=== PATIENT | female | born 2000 | race Caucasian/White ===

== ENCOUNTER → 2019-12-02 08:40 | Outpatient (BNVA) | payer BC, MEDICAID, SELFPAY | PROVIDERS: Family Provider Nurse Practitioner Family; Visit Provider Nurse Practitioner | DX: R82.998 Other abnormal findings in urine (principal); R39.9 Unspecified symptoms and signs involving the genitourinary system; N39.0 Urinary tract infection, site not specified | CPT/HCPCS: 80053; 81003; 87077; 87086; 87186 ==

== ENCOUNTER → 2022-02-06 15:09 | Outpatient (BNVA) | payer BC, MEDICAID, SELFPAY | PROVIDERS: Visit Provider Family Medicine | DX: Z34.00 Encounter for supervision of normal first pregnancy, unspecified trimester (principal) | CPT/HCPCS: 82950 ==

== ENCOUNTER → 2022-04-03 09:35 | Outpatient (BNVA) | payer BC, MEDICAID, SELFPAY | PROVIDERS: PCP Family Medicine; Visit Provider Family Medicine | DX: Z34.00 Encounter for supervision of normal first pregnancy, unspecified trimester (principal) | CPT/HCPCS: 85025 ==

== ENCOUNTER 2022-05-01 10:36 | Outpatient (CLI) | payer BC, MEDICAID, SELFPAY ==
[2022-05-01 10:50] VITALS: TEMP 35.9
[2022-05-01 10:51] VITALS: BP 124/63; PULSE 72
[2022-05-01 11:11] VITALS: RESP 16
--- NOTE | 2022-05-01 11:11 | US_ITS ---
WS: [id number] LIMITED OBSTETRICAL ULTRASOUND HISTORY: measuring small COMPARISON: 01/04/2022 and 10/10/2021 Presentation: Vertex. Cervix: Closed. Placenta: Anterior, no previa or abruption. Grade: 1 HEART: FHR of 150 BPM. measurements: BPD = 9.0 cm = 36w3d; 59th percentile HC = 32.2 cm = 36w3d; 21st percentile AC = 29.4 cm = 33w3d; 2nd percentile FL = 7.1 cm = 36w3d; 47th percentile AZALIA: 10.0 cm; largest vertical pocket 2.8 cm. EFW: 2533 g; 32 %. AGA by ultrasound: 35w5d ZOË by ultrasound: 05/31/2022 Appropriate growth of the fetus since the first trimester ultrasound. There is also circumference US/US OB limited [id number] IMPRESSION: 1. Single intrauterine gestation of 35 weeks 5 days with EDC of 05/31/2022. 2. Abdominal circumference is measuring at the 2nd percentile and measuring ap proximately 3 weeks smaller than expected. Suspect intrauterine growth retardat ion. 3. Estimated weight at the 32nd percentile for age. 4. Normal amniotic fluid index.
[2022-05-01 11:14] VITALS: BMI 28.3
[2022-05-01 11:27] LABS: Actim Prom Negative
== END 2022-05-01 12:25 | disposition home or self-care (01) ==
LOC: OPOB 10:40 → OBGYN 10:41
PROVIDERS: PCP Family Medicine; Visit Provider Family Medicine
DX: O41.93X1 Disorder of amniotic fluid and membranes, unspecified, third trimester, fetus 1 (principal); Z3A.36 36 weeks gestation of pregnancy
CPT/HCPCS: 59025; 76815; 84112; 87081; 99211

== ENCOUNTER → 2022-05-09 13:47 | Outpatient (BNVA) | payer BC, MEDICAID, SELFPAY | PROVIDERS: PCP Family Medicine; Visit Provider Family Medicine | DX: O36.5930 Maternal care for other known or suspected poor fetal growth, third trimester, not applicable or unspecified (principal); Z3A.36 36 weeks gestation of pregnancy | CPT/HCPCS: 76815; 76819; 76820 ==

== ENCOUNTER 2022-05-10 17:01 | Outpatient (CLI) | payer BC, MEDICAID, SELFPAY ==
[2022-05-10 17:16] VITALS: BP 125/75; PULSE 88
[2022-05-10 17:21] VITALS: RESP 18
[2022-05-10 17:22] VITALS: BMI 28.3
[2022-05-10 17:27] VITALS: BP 129/80; PULSE 82
[2022-05-10 17:37] VITALS: BP 121/67; PULSE 78
[2022-05-10 17:46] VITALS: BP 131/66; PULSE 86
== END 2022-05-10 17:50 | disposition home or self-care (01) ==
LOC: OPOB 17:02 → OBGYN 17:02
PROVIDERS: PCP Family Medicine; Visit Provider Family Medicine
DX: O26.899 Other specified pregnancy related conditions, unspecified trimester (principal); Z3A.00 Weeks of gestation of pregnancy not specified
CPT/HCPCS: 59025

== ENCOUNTER 2022-05-12 16:54 | Outpatient (CLI) | payer BC, MEDICAID, SELFPAY ==
[2022-05-12 17:25] VITALS: BP 131/83; PULSE 69
[2022-05-12 17:35] VITALS: BP 119/73; PULSE 73
[2022-05-12 17:51] VITALS: BMI 28.3
== END 2022-05-12 17:58 | disposition home or self-care (01) ==
LOC: OPOB 16:54 → OBGYN 16:55
PROVIDERS: PCP Family Medicine; Visit Provider Family Medicine
DX: O41.00X0 Oligohydramnios, unspecified trimester, not applicable or unspecified (principal); Z3A.00 Weeks of gestation of pregnancy not specified
CPT/HCPCS: 59025; 99211

== ENCOUNTER 2022-05-16 17:14 | Outpatient (CLI) | payer BC, MEDICAID, SELFPAY ==
[2022-05-16 17:15] VITALS: BMI 28.8
[2022-05-16 17:21] VITALS: BP 129/78; PULSE 71
[2022-05-16 17:36] VITALS: BP 120/69; PULSE 80
[2022-05-16 17:52] VITALS: BP 125/69; PULSE 73
[2022-05-16 17:56] VITALS: RESP 16; TEMP 36.7
--- NOTE | 2022-05-16 17:56 | USR_ITS ---
PROCEDURE INFORMATION: Exam: US Biophysical Profile Without Non-Stress Test Exam date and time: 05/16/2022 6:16 PM Age: 21 years old Clinical indication: status abnormalities: ; growth - poor; Single gestation; Third trimester (=28 weeks 0 days); ; Patient HX: History of sga, asymmetric iugr done elsewhere, also HX low azalia done elsewhere. ; Additional info: Repeat azalia as well. Sga, low azalia TECHNIQUE: Imaging protocol: US biophysical profile without non-stress testing. COMPARISON: US OB >= 14 weeks fetus [id number] 01/04/2022 4:31 PM FINDINGS: heart rate: 133 bpm presentation: Cephalic Placenta: Anterior placenta without previa. Amniotic fluid: Amniotic fluid volume is normal. Amniotic fluid index: AZALIA is 17.1 cm. BIOPHYSICAL PROFILE: breathing movement (BPP): 2/2 body movement (BPP): 2/2 tone (BPP): 2/2 Amniotic fluid (BPP): 2/2 Biophysical profile score (BPP): 8/8 MATERNAL ANATOMY: Cervix: Cervical length measures 6.7 cm. Measurement is transabdominal. US/US OB BPP wo NST [id number] IMPRESSION: 1. Single live cephalic vein taken intrauterine gestation. 2. Biophysical profile score 8/8. 3. Unremarkable amniotic fluid index.
[2022-05-16 18:41] VITALS: BP 125/69; PULSE 67
[2022-05-16 18:45] VITALS: BP 125/69; PULSE 67
== END 2022-05-16 18:45 | disposition home or self-care (01) ==
LOC: OPOB 17:16 → OBGYN 17:17
PROVIDERS: PCP Family Medicine; Visit Provider Family Medicine
DX: O26.899 Other specified pregnancy related conditions, unspecified trimester (principal); Z3A.00 Weeks of gestation of pregnancy not specified
CPT/HCPCS: 76819

== ENCOUNTER 2022-05-19 10:58 | Outpatient (CLI) | payer BC, MEDICAID, SELFPAY ==
[2022-05-19 10:58] VITALS: BMI 28.7
[2022-05-19 11:09] VITALS: BP 117/58; PULSE 69; TEMP 36.3
[2022-05-19 11:23] VITALS: RESP 16
[2022-05-19 11:30] VITALS: BP 108/68; PULSE 76
== END 2022-05-19 11:45 | disposition home or self-care (01) ==
LOC: OPOB 11:05 → OBGYN 11:06
PROVIDERS: PCP Family Medicine; Visit Provider Family Medicine
DX: O41.00X0 Oligohydramnios, unspecified trimester, not applicable or unspecified (principal); Z3A.00 Weeks of gestation of pregnancy not specified
CPT/HCPCS: 59025

== ENCOUNTER 2022-05-22 07:00 | Inpatient (IN) | payer BC, MEDICAID, SELFPAY ==
[2022-05-21] VITALS (15 sets, daily range): BP systolic 90–128; BP diastolic 50–71; PULSE 52–96; RESP 16; TEMP 36.4; O2SAT 99; BMI 28.7
[2022-05-21] MEDS: ampicillin 2,000 MG in sodium chloride 0.9% (plus) 50 ML 100 MG IV (22:12)
[2022-05-21 22:27] LABS: Basophils % 0.2 %; Eosinophils % 0.4 %; Hematocrit 39.8 % (37.0-47.0); Hemoglobin 13.5 g/dL (11.5-15.3); Lymphocytes # 2.1 10^3/uL (0.8-4.8); Lymphocytes % 21.6 %; Mean Corpuscular HGB Conc 33.9 g/dL (30.0-36.0); Mean Corpuscular Hemoglobin 30.5 pg (28.0-34.0); Mean Corpuscular Volume 89.8 fl (81-99); Mean Platelet Volume 10.3 fL (7.4-10.4); Monocytes # 0.6 10^3/uL (0.2-0.9); Monocytes % 6.3 %; Neutrophils # 6.72 10^3/uL (1.8-7.7); Nucleated Red Blood Cells % 0 %; Platelet Count 208 10^3/cmm (130-400); Red Blood Count 4.43 10^6/uL (4.1-5.3); Red Cell Distribution Width 13.2 % (12.1-15.1); White Blood Count 9.5 10^3/uL (4.0-10.0)
[2022-05-21] MEDS: miSOPROStol 100 mcg tablet 25 MCG VAGINAL (22:30)
[2022-05-22] VITALS (113 sets, daily range): BP systolic 90–129; BP diastolic 40–83; PULSE 49–144; RESP 15–18; TEMP 35.8–36.9; O2SAT 80–100
[2022-05-22] MEDS: dextrose 5%-lactated ringers 1,000 ML 125 ML IV ×2 (00:23→10:27)
[2022-05-22] MEDS: ampicillin 1,000 MG in sodium chloride 0.9% (plus) 50 ML 100 MG IV ×2 (02:15→06:23)
[2022-05-22] MEDS: oxytocin 30 UNIT/500 ML BAG IV (02:42)
[2022-05-22] MEDS: lactated ringers 1,000 ML 999 ML IV ×3 (03:36→06:44)
[2022-05-22] MEDS: butorphanol 2 mg/mL SDV 1 mL 1 MG IVP (04:02)
--- NOTE | 2022-05-22 04:33 | P.ANESASSM_ITS ---
Documented by User: Navid Weiss, ELISSA 05/22/22 04:40 Pre-Anesthetic Assessment Height/Weight: Height 1.6 m Weight 73.482 kg Temp Pulse Resp BP Pulse Ox O2 Del Method 97.6 F 58 L 16 100/56 81 L 05/21/22 20:39 05/22/22 04:16 05/21/22 20:39 05/22/22 04:16 05/22/22 03:58 05/21/22 21:21 Preop Diagnosis: Planning of labor analgesia Familial anesthetic complications: None Was Beta Ferdinand taken within 24 hours: N/A Was Clonidine taken within 24 hours: N/A Social No alcohol and No tobacco (Previously) Exam alert, oriented x 3, clear to auscultation bilaterally and regular rate & rhythm Airway Submandibular: within normal limits Cervical ROM: within normal limits Mallampati: Class II Dentition: full History/ROS No significant history except as noted and No significant complaints Pulmonary None reported CV/HEM None reported Urinary Tract Infection Hepatic None reported GI None reported Metabolic None reported Musc/skel None reported Neuropsych None reported Anesthetic Plan ASA status: 2 Anesthesia: Anesthesia Evaluation and Regional (specify below) (Epidural) Risk of > 500 ml blood loss (7ml/kg in children): No Medications/Allergies Home Medications Medication Instructions Recorded Confirmed Last Taken Type prenat.vits,omar,ede-fzue-uqolm 1 tab PO DAILY 05/01/22 05/21/22 04/30/22 10:00 History Electric Breast Pump #1 ea 05/18/22 05/21/22 Unknown Rx Allergies Allergy/AdvReac Type Severity Reaction Status Date / Time doxycycline Allergy Mild rash Verified 05/21/22 21:39 ciprofloxacin [From Cipro] Allergy Unknown Rash, Verified 05/21/22 21:39 Itching trimethoprim [From Bactrim] Allergy Unknown Unknown Verified 05/21/22 21:39 sulfamethoxazole AdvReac Unknown rash and Verified 05/21/22 21:39 [From Bactrim] stomach pain Current Medications Generic Name Dose Route Start Last Admin Trade Name Freq PRN Reason Stop Dose Admin Butorphanol Tartrate 1 mg 05/21/22 20:39 05/22/22 04:02 Butorphanol 2 Mg/Ml Sdv 1 Ml IVP 1 mg Q2H PRN Administration SEVERE PAIN Ampicillin Sodium 1,000 mg/ 50 mls @ 100 mls/hr 05/22/22 00:30 05/22/22 02:15 Sodium Chloride IV 100 mls/hr Q4H HEBER Administration Protocol Dextrose/Lactated Ringer's 1,000 mls @ 125 mls/hr 05/21/22 20:39 05/22/22 00:23 Dextrose 5%-Lactated Ringers IV 125 mls/hr .Q8H PRN Administration per label comments Oxytocin 30 unit in 500 mls @ 1 mls/hr 05/22/22 02:45 05/22/22 02:42 Pitocin IV 1 milliunit/min .Q24H HEBER 1 mls/hr Administration Protocol 1 MILLIUNIT/MIN Lactated Ringer's 1,000 mls @ 999 mls/hr 05/22/22 03:31 05/22/22 03:36 Lactated Ringers IV 999 mls/hr .Q1H1M PRN Administration See label comments Misoprostol 25 mcg 05/21/22 20:45 05/22/22 02:35 Misoprostol 100 Mcg Tablet VAGINAL 05/22/22 06:31 Not Given Q4H HEBER PFSH Anesthesia Medical History UTI (urinary tract infection) Surgical History No pertinent past surgical history Family History Grandfather Cancer Prostate Diabetes Grandmother Diabetes Social History Smoking and tobacco status: current every day smoker Second hand smoke exposure: Yes Smoking risk assessment/counseling performed?: Yes Desire information about alcohol rehabilitation?: No Counseling given: No Desire information about substance/drug rehabilitation?: No Counseling given: No Adopted: No Caregiver/support person: No Lives independently: Yes Household members: family Marital status: Single Highest education level completed: High School Graduate service: No Current occupational status: employed Pets and animals: Yes History of recent travel: No Current gender identity: Female Female Reproductive History Date of last menstrual period: 11/24/19 : 1 Data Anesthesia : 05/21/22 22:10 Short CBC 05/21/22 Range/Units 22:10 WBC 9.5 (4.0-10.0) 10^3/uL Hgb 13.5 (11.5-15.3) g/dL Hct 39.8 (37.0-47.0) % MCV 89.8 (81-99) fl Plt Count 208 (130-400) 10^3/cmm Neut % (Auto) 71.0 % Neut # (Auto) 6.72 (1.8-7.7) 10^3/uL Cardiac Studies: No Data to Display Documented by User: Jud Cruz DO 05/22/22 07:33 Pre-Anesthetic Assessment Other Pertinent Information Update 05/22/22. Need for urgent C section due to monitoring called by Doctor Brianna. Discussed anesthetic plan with patient, used of epidural, possible need for conversion to general anesthesia. Patient declined detailed discussion of serious but less common risk. Patient consents to proceed with c section under regional and general if needed. Medications/Allergies Home Medications Medication Instructions Recorded Confirmed Last Taken Type prenat.vits,omar,hvl-rymi-znyoo 1 tab PO DAILY 05/01/22 05/21/22 04/30/22 10:00 History Electric Breast Pump #1 ea 05/18/22 05/21/22 Unknown Rx Allergies Allergy/AdvReac Type Severity Reaction Status Date / Time doxycycline Allergy Mild rash Verified 05/21/22 21:39 ciprofloxacin [From Cipro] Allergy Unknown Rash, Verified 05/21/22 21:39 Itching trimethoprim [From Bactrim] Allergy Unknown Unknown Verified 05/21/22 21:39 sulfamethoxazole AdvReac Unknown rash and Verified 05/21/22 21:39 [From Bactrim] stomach pain [facility] Anesthesia Medical History UTI (urinary tract infection) Surgical History No pertinent past surgical history Family History Grandfather Cancer Prostate Diabetes Grandmother Diabetes Social History Smoking and tobacco status: current every day smoker Second hand smoke exposure: Yes Smoking risk assessment/counseling performed?: Yes Desire information about alcohol rehabilitation?: No Counseling given: No Desire information about substance/drug rehabilitation?: No Counseling given: No Adopted: No Caregiver/support person: No Lives independently: Yes Household members: family Marital status: Single Highest education level completed: High School Graduate service: No Current occupational status: employed Pets and animals: Yes History of recent travel: No Current gender identity: Female Data Anesthesia : 05/21/22 22:10 Cardiac Studies: No Data to Display
--- NOTE | 2022-05-22 05:11 | ANES.PROC ---
Anesthesia Procedures Procedure/Date: 05/25/22 Epidural: Time Out Performed: Yes Consents Signed: Procedure Consent and NPO Consent Consent: requested by attending/covering physician, from patient, risks and benefits reviewed and patient agrees to proceed Lumbar Level: L3-L4 Epidural position: sitting Epidural procedure: sterile prep of area, 1% lidocaine to numb the area, neg for paresthesia, test dose given (3 mL/2 mL of 2% lido with epi), 0.2% Ropivacaine bolus ml (5 mL), placed PCEA, no systemic response, sterile dressing applied and 0.2% Ropiavacaine @ mls/hr (11 mL/hr) Additional Comments: STEFFANIE 6 cm, catheter placed at 11 cm Other Information: 0532: After 20 minutes, patient states that the pain from her contractions hasn't changed. 100 mcg of fentanyl given via epidural
--- NOTE | 2022-05-22 05:59 | PM.HP ---
Providers/Chief Complaint Admitting Physician: Jamal Reed MD Primary Care Provider: Jamal Reed MD Chief Complaint: IOL History of Present Illness Sis Nair is a 21 year old @ 39.3 weeks by LMP c/w 7 wk US. Preg c/b 1st TM bleeding, GBS positive, borderline IUGR, borderline low AZALIA. The patient presented to labor and delivery for elective induction of labor with underlying concerns for measuring small for gestational age with abdominal circumference measuring small for gestational age. AZALIA was also in the 8 range. Due to the borderline range of these, it was felt best to proceed with induction of labor in the 39th week. The patient currently feels well. Prior to arrival, the patient has had no leakage of fluid, vaginal bleeding, nausea, vomiting, diarrhea, constipation, chest pain, shortness of breath, fever, cough. Medications/Allergies Home Medications Medication Instructions Recorded Confirmed Last Taken Type prenat.vits,omar,hhd-qtgh-anucb 1 tab PO DAILY 05/01/22 05/21/22 04/30/22 10:00 History Electric Breast Pump #1 ea 05/18/22 05/21/22 Unknown Rx Allergies Allergy/AdvReac Type Severity Reaction Status Date / Time doxycycline Allergy Mild rash Verified 05/21/22 21:39 ciprofloxacin [From Cipro] Allergy Unknown Rash, Verified 05/21/22 21:39 Itching trimethoprim [From Bactrim] Allergy Unknown Unknown Verified 05/21/22 21:39 sulfamethoxazole AdvReac Unknown rash and Verified 05/21/22 21:39 [From Bactrim] stomach pain PFSH Acute PFSH: Medical History UTI (urinary tract infection) Surgical History No pertinent past surgical history Family History Grandfather Cancer Prostate Diabetes Grandmother Diabetes Social History Smoking and tobacco status: current every day smoker Second hand smoke exposure: Yes Smoking risk assessment/counseling performed?: Yes Desire information about alcohol rehabilitation?: No Counseling given: No Desire information about substance/drug rehabilitation?: No Counseling given: No Adopted: No Caregiver/support person: No Lives independently: Yes Household members: family Marital status: Single Highest education level completed: High School Graduate service: No Current occupational status: employed Pets and animals: Yes History of recent travel: No Current gender identity: Female Female Reproductive History: Date of last menstrual period: 11/24/19 : 1 Vitals/I&O/Wt Last Vital Signs Temp 96.4 F L 05/22/22 05:37 Pulse 66 05/22/22 05:54 Resp 16 05/21/22 20:39 BP 122/66 05/22/22 05:54 Pulse Ox 100 05/22/22 05:54 O2 Del Method 05/21/22 21:21 05/21/22 05/21/22 05/22/22 14:59 22:59 06:59 Intake Total 50 / 50 1000 / 1050 Balance 50 / 50 1000 / 1050 Weight last 48 hrs Weight 162 lb Physical Exam Narrative: General: Alert and oriented x3 Eyes: Pupils equal round and reactive to light and accommodation Mouth: Mucous membranes moist, pharynx non-erythematous Cardiac: Regular rate and rhythm without murmurs Lungs: Clear to auscultation bilaterally without wheezes, crackles or rhonchi Abdomen: Soft, non-tender, fundus consistent with gestational age Extremities: Trace edema in the bilateral lower extremities Data : 05/21/22 22:10 A&P Assessment and plan (1) Supervision of normal intrauterine in primigravida: The patient is doing well at this time. She was given 1 dose of Cytotec overnight. She was 1 cm dilated upon arrival. She is currently mee on her own every 2 to 3 minutes. She is now currently 6 cm dilated. heart tones are in the mid 130s with moderate variability and good accelerations. She has had a couple of prolonged decelerations that have recovered with position changes and showing good variability in between. SROM took place overnight with clear fluid. We will continue to monitor closely. The patient is receiving a laboring epidural. We will proceed with induction of labor. Attestations Medical Necessity Statement*: The patient will be here for greater than 2 midnights due to routine intrapartum and management of labor and delivery. Coding Level of Care Code Acute Engineer Byproduct for Ale [employer] Diagnoses Supervision of normal intrauterine in primigravida Z34.00
--- NOTE | 2022-05-22 06:12 | ANES.PROC ---
Anesthesia Procedures Procedure/Date: 05/25/22 Epidural: Time Out Performed: Yes Consents Signed: Procedure Consent and NPO Consent Consent: requested by attending/covering physician, from patient, risks and benefits reviewed and patient agrees to proceed Lumbar Level: L2-L3 Epidural position: sitting Epidural procedure: sterile prep of area, 1% lidocaine to numb the area, neg for paresthesia, test dose given (3 mL/ 2 mL 2% lido with 1:200,000), 0.2% Ropivacaine bolus ml (5 mL), placed PCEA, no systemic response, sterile dressing applied and 0.2% Ropiavacaine @ mls/hr (11 mL) Additional Comments: Removed previously placed epidural catheter. STEFFANIE 7 cm, catheter placed at 12 cm
[2022-05-22] MEDS: famotidine 20 mg/2 mL INJ IVP (07:15)
[2022-05-22] MEDS: metoclopramide 5 mg/mL SDV 2 mL 10 MG IVP (07:15)
[2022-05-22] MEDS: clindamycin 900 MG/50 ML PREMIX 100 MG IV ×3 (07:15→23:33)
--- NOTE | 2022-05-22 07:30 | PC.NURSE ---
Dr. Reed notified that preop medications were not administered and he stated to move to the OR. Medications: reglan, pepcid, gentamycin, and clindamycin administered in OR by anesthesia, manual barcodes entered related to urgency of surgery.
--- NOTE | 2022-05-22 08:34 | PM.OP ---
Operative Report Date of procedure: May 22, 2022 Pre-op diagnosis: 1. Intrauterine at 39.3 weeks gestation 2. For trimester bleeding 3. GBS positive status post multiple doses of ampicillin 4. Borderline asymmetric IUGR 5. Borderline oligohydramnios 6. intolerance of labor Post-op diagnosis: 1. Intrauterine status post primary low-transverse section at 39.3 weeks gestation 2. For trimester bleeding 3. GBS positive status post multiple doses of ampicillin 4. Borderline asymmetric IUGR 5. Borderline oligohydramnios 6. intolerance of labor 7. Delivery of healthy female weighing 6 pounds 2 ounces with Apgars of 8 and 9 8. Nuchal cord x1 and body cord x1 Post-op findings: 1. Healthy infant female weighing 6 pounds 2 ounces with Apgars of 8 and 9 2. Umbilical cord without twists and a small amount of Clayton's jelly. 3. Nuchal cord x1 and body cord x1 that were tight in nature. Procedure done: Primary low transverse section Specimens removed/disposition: Placenta discarded Surgeon: Jamal Reed MD Estimated blood loss (mL): 500 Urine output: 100 mL Complications: None Brief History: Sis Nair is a 21 year old G1 now P1 status post primary low transverse section @ 39.3 weeks by LMP c/w 7 wk US. Preg c/b 1st TM bleeding, GBS positive, borderline IUGR, borderline low AZALIA, intolerance of labor. The patient presented for induction of labor on the evening of 05/21/2022. She was noted to be 1/75/-2 and was given Cytotec. Approximately 1 hour after Cytotec, she had a prolonged deceleration. She recovered well from this and had good variability before and after. The patient continued to contract and made change to 3 to 4 cm. She started to stall out and was started on IV Pitocin at 1 unit. She again had a prolonged deceleration. The Pitocin was stopped. Position changes were done, fluid bolus was given, and oxygen was placed. heart tones improved once again. The patient continued to contract on her own every 2 to 3 minutes and made change to 5 to 6 cm dilation. At 5:13 AM on 05/22/2022, her water broke and was noted to have clear fluid. The patient's pain increased and she received a laboring epidural. She had another prolonged deceleration. After this, the heart tones did not improve well and variability decreased. She began to have early decelerations with intermixed late decelerations. She was still not making further change beyond 5 to 6 cm and there was not good pressure on the cervix without Pitocin. Because of the decelerations, it was felt that it was not safe to proceed with induction of labor and that as section would be necessary for the safety of the . The parents agreed. The patient was taken back for a primary low transverse section due to intolerance of labor. The decision was made at 6:56 AM on 05/22/2022. Procedure: After informed consent was obtained, the patient was taken to the operating room and the patient was prepped and draped in a normal sterile fashion in the dorsal supine position.? A spinal was placed and adequate anesthesia was obtained.? At 7:17 AM on 05/22/2022 a Pfannenstiel skin incision was made and carried through to the underlying layer of fascia using a scalpel.? The fascial incision was then extended laterally using curved Mayos.? The fascia was then grasped with Michael clamps and the underlying rectus muscles were dissected off taking care to avoid injury to the underlying tissues.? The peritoneum was entered bluntly with one digit.? It was then bluntly.? The bladder blade was placed and the vesicouterine peritoneum was well below the lower uterine segment of the uterus.? The uterine incision was made in the lower uterine segment in a transverse fashion with the scalpel at 7:20 AM.? The amniotic membrane was entered bluntly and a small amount of clear fluid was noted.? Uterine pressure was placed and the 's head delivered without complication at 7:21 AM on 05/22/2022.? There was a tight nuchal cord and the cord was also wrapped around the 's body and leg. It was tight in nature and the cord was noted to have no twists and very little Gay's jelly.? The mouth and nose were suctioned.? The rest of the delivered without difficulty.? The infant took a breath immediately upon delivery.? The cord was clamped and cut and the infant was handed to the awaiting pediatric nurses.? The placenta was then manually expressed.? The uterus was exteriorized from the abdomen.? A wet lap was used to clear the uterus of clots and debris.? The bladder blade was reinserted and the uterine incision was closed using 0 chromic in a running locking fashion.? The uterus was noted to be firm.? A second layer of the same suture was used in the same manner.? Excellent hemostasis was obtained. Next the posterior cul-de-sac was inspected and was cleared of any blood. The gutters were cleared of any further clots and debris and the uterine incision was again inspected and hemostasis was noted.? The subfascial tissue was inspected for hemostasis and the peritoneum was re-approximated using 2-0 plain in a running fashion.? The fascia was then re-approximated using 0 Vicryl in a running fashion.? The subcutaneous tissue was inspected for hemostasis.? Chidi's fascia was then re-approximated using 3-0 plain in a running fashion.? Good hemostasis was noted.? The subcutaneous tissue was then re-approximated using a subcuticular stitch.? The patient tolerated the procedure well and was recovered in stable condition.? Estimated blood loss was 500 mL. Urine in the Evangelista catheter was clear. The patient was taken to recovery in good condition. The likely need for section was due to the tight nuchal and body cord with very little Clayton's jelly. This patient would be a good candidate for a in the future if so desired.
--- NOTE | 2022-05-22 10:42 | ANE.PACU2 ---
Inpatient post-anesthesia follow up: Airway intact: Yes Vital signs: Temperature 98.4 F Pulse Rate 49 Respiratory Rate 18 Blood Pressure 110/83 Pulse Oximetry 100 Oxygen Delivery Me thod Room Air Oxygen Flow Rate Fraction of Inspir ed Oxygen Hydration adequate: Yes Nausea and vomiting: No Pain level: 1 Mental status: Baseline
[2022-05-22] MEDS: oxyCODONE-APAP 5-325 mg Tablet PO ×3 (11:10→19:34)
[2022-05-22] MEDS: ketorolac 30 mg/mL INJ IVP (15:05)
[2022-05-22 19:38] LABS: Hematocrit 33.9 % (37.0-47.0); Hemoglobin 11.1 g/dL (11.5-15.3); Mean Corpuscular HGB Conc 32.7 g/dL (30.0-36.0); Mean Corpuscular Hemoglobin 30.6 pg (28.0-34.0); Mean Corpuscular Volume 93.4 fl (81-99); Mean Platelet Volume 10.5 fL (7.4-10.4); Platelet Count 153 10^3/cmm (130-400); Red Blood Count 3.63 10^6/uL (4.1-5.3); Red Cell Distribution Width 13.3 % (12.1-15.1)
[2022-05-23] VITALS (7 sets, daily range): BP systolic 107–114; BP diastolic 57–70; PULSE 69–99; RESP 15–17; TEMP 36.8–37.2; O2SAT 94–98
[2022-05-23] MEDS: oxyCODONE-APAP 5-325 mg Tablet PO ×2 (00:26→07:43)
[2022-05-23] MEDS: ketorolac 30 mg/mL INJ IVP (00:26)
[2022-05-23] MEDS: prenatal vitamin Capsule 1 CAP PO (07:42)
[2022-05-23] MEDS: clindamycin 900 MG/50 ML PREMIX 100 MG IV (07:44)
--- NOTE | 2022-05-23 08:16 | P.PN_ITS ---
Subjective Subjective: The patient is doing well today. She is having pain after her section and pain medications are controlling it moderately. She is able to ambulate, void, pass gas and will plan to eat breakfast this morning. Her bleeding is decreasing well. Vitals/I&O/Wt Last Vital Signs Temp 98.4 F 05/22/22 16:52 Pulse 86 05/23/22 04:52 Resp 16 05/23/22 07:43 BP 114/70 05/23/22 04:52 Pulse Ox 97 05/23/22 04:52 O2 Del Method 05/23/22 04:52 05/22/22 05/23/22 05/23/22 22:59 06:59 14:59 Intake Total 1800 / 6054.75 50 / 6104.75 Output Total 2100 / 3500 500 / 4000 Balance -300 / 2554.75 -450 / 2104.75 Weight last 48 hrs Weight 162 lb Physical Exam Narrative: General: Alert and oriented x3 Cardiac: Regular rate and rhythm without murmurs Lungs: Clear to auscultation bilaterally without wheezes, crackles or rhonchi Abdomen: Soft, moderate tenderness over the uterus. 2 cm below the umbilicus. Incision is dry with mild blood on the surface that is dried. No signs of infection or dehiscence. Extremities: Trace edema in the bilateral lower extremities Urinary Catheter Management: Evangelista Latex: Cath Placed During This Visit: yes, but has since been removed by the nurse Reason for Continuing Indwelling Catheter: Decision to DC Catheter Urinary Catheter Date of Insertion: 05/22/22 Urinary Catheter Time of Insertion: 05:12 Date Urinary Catheter Removed: 05/22/22 Time Urinary Catheter Discontinued: 19:00 Data : 05/22/22 19:27 A&P Assessment and plan (1) Delivery by section: (2) Status post section: The patient is doing well after section. We will continue with pain management. We will watch for any signs of complications. Proceed with routine care at this time. Plan for discharge home tomorrow if improving well. All questions answered. Routine discharge instructions were discussed. Attestations Medical Necessity Statement*: The patient continues need inpatient care and will be here for greater than 2 midnights as she recovers after section. Coding Level of Care Code Acute Personal Injury Legal Assistant for Chg Fwd Diagnoses Delivery by section Status post section Z98.891
[2022-05-23] MEDS: ibuprofen 800 mg tablet PO ×3 (08:42→20:44)
[2022-05-23] MEDS: docusate sodium 100 mg Capsule PO (08:42)
[2022-05-23] MEDS: acetaminophen 325 mg Tablet 650 MG PO (13:20)
[2022-05-24] MEDS: acetaminophen 325 mg Tablet 650 MG PO (04:06)
[2022-05-24 04:08] VITALS: BP 119/71; PULSE 74; RESP 15; TEMP 36.6; O2SAT 97
--- NOTE | 2022-05-24 04:09 | PC.NURSE ---
This nurse rounded on patient at this time. RN asked patient her pain on scale of 0-10, patient states pain is 5/10 hurting mostly in her back . This RN offers Oxycodone PRN medication. Patient states I don't like the way it makes me feel, when I take it I'm nodding off while , can I just have Ibuprofen or Tylenol? This RN administered Tylenol 650mg and offered a heating pad to help with the back pain that the patient refused.
--- NOTE | 2022-05-24 08:38 | P.DS_ITS ---
Discharge Providers Date of Admission: 05/22/22 07:00 Date of Discharge: May 24, 2022 Attending Provider at Admission: Jamal Reed MD Attending Provider at Discharge: Jamal Reed MD Primary Care Provider: Jamal Reed MD Diagnoses at Discharge Discharge Diagnosis (1) Delivery by section: Status: Acute (2) Status post section: Status: Acute Other Information Additional DC diagnoses/information: 1.? Intrauterine status post primary low-transverse section at 39.3 weeks gestation 2.? For trimester bleeding 3.? GBS positive status post multiple doses of ampicillin 4.? Borderline asymmetric IUGR 5.? Borderline oligohydramnios 6.? intolerance of labor 7.? Delivery of healthy female weighing 6 pounds 2 ounces with Apgars of 8 and 9 8.? Nuchal cord x1 and body cord x1 Reason for Visit Reason for Visit: IOL Brief History: Sis Nair is a 21 year old G1 now P1 status post primary low transverse section @ 39.3 weeks by LMP c/w 7 wk US. Preg c/b 1st TM bleeding, GBS positive, borderline IUGR, borderline low AZALIA, intolerance of labor. Hospital Course Hospital Course The patient presented for induction of labor on the evening of 05/21/2022.? She was noted to be 1/75/-2 and was given Cytotec.? Approximately 1 hour after Cytotec, she had a prolonged deceleration.? She recovered well from this and had good variability before and after.? The patient continued to contract and made change to 3 to 4 cm.? She started to stall out and was started on IV Pitocin at 1 unit.? She again had a prolonged deceleration.? The Pitocin was stopped.? Position changes were done, fluid bolus was given, and oxygen was placed.? heart tones improved once again.? The patient continued to contract on her own every 2 to 3 minutes and made change to 5 to 6 cm dilation.? At 5:13 AM on 05/22/2022, her water broke and was noted to have clear fluid.? The patient's pain increased and she received a laboring epidural.? She had another prolonged deceleration.? After this, the heart tones did not improve well and varia bility decreased.? She began to have early decelerations with intermixed late decelerations.? She was still not making further change beyond 5 to 6 cm and there was not good pressure on the cervix without Pitocin.? Because of the decelerations, it was felt that it was not safe to proceed with induction of labor and that as section would be necessary for the safety of the .? The parents agreed.? The patient was taken back for a primary low transverse section due to intolerance of labor.? The section was uncomplicated and both the mother and infant are doing well afterwards. The patient's bleeding has decreased well. The patient is now ambulating, voiding, passing gas and tolerating food by mouth. Her pain is well controlled. She is doing well and is ready to be discharged home. She will follow-up with me next week and 6 weeks . All questions were answered. The patient and her are in agreement with the current plan of care. Physical Exam Narrative: General: Alert and oriented x3 Cardiac: Regular rate and rhythm without murmurs Lungs: Clear to auscultation bilaterally without wheezes, crackles or rhonchi Abdomen: Soft, moderate tenderness over the uterus. 2 cm below the umbilicus. Incision is clean and dry. No signs of infection or dehiscence. Extremities: Trace edema in the bilateral lower extremities Urinary Catheter Management: Evangelista Latex: Cath Placed During This Visit: yes, but has since been removed by the nurse Reason for Continuing Indwelling Catheter: Decision to DC Catheter Urinary Catheter Date of Insertion: 05/22/22 Urinary Catheter Time of Insertion: 05:12 Date Urinary Catheter Removed: 05/22/22 Time Urinary Catheter Discontinued: 19:00 Discharge Data Studies Completed and Pending Laboratory Results WBC 11.0 10^3/uL (4.0-10.0) H 05/22/22 19: RBC 3.63 10^6/uL (4.1-5.3) L 05/22/22 19: Hgb 11.1 g/dL (11.5-15.3) L 05/22/22: Hct 33.9 % (37.0-47.0) L 05/22/22 19: MCV 93.4 fl (81-99) 05/22/22 19: MCH 30.6 pg (28.0-34.0) 05/22/22 19: MCHC 32.7 g/dL (30.0-36.0) 05/22/22 19:27 RDW 13.3 % (12.1-15.1) 05/22/22 19:27 Plt Count 153 10^3/cmm (130-400) 05/22/22 19:27 MPV 10.5 fL (7.4-10.4) H 05/22/22 19:27 Neut % (Auto) 71.0 % 05/21/22 22:10 Lymph % (Auto) 21.6 % 05/21/22 22:10 [place] % (Auto) 6.3 % 05/21/22 22:10 Eos % (Auto) 0.4 % 05/21/22 22:10 Baso % (Auto) 0.2 % 05/21/22 22:10 Neut # (Auto) 6.72 10^3/uL (1.8-7.7) 05/21/22 22:10 Lymph # (Auto) 2.1 10^3/uL (0.8-4.8) 05/21/22 22:10 [place] # (Auto) 0.6 10^3/uL (0.2-0.9) 05/21/22 22:10 Eos # (Auto) 0.0 10^3/uL (0.0-0.8) 05/21/22 22:10 Baso # (Auto) 0.0 10^3/uL (0.0-0.1) 05/21/22 22:10 Nucleated RBC % (auto) 0 % 05/21/22 22:10 Nucleated RBCs # 0.0 /100WBC 05/21/22 22:10 Vitals Last Vital Signs Temp 97.9 F 05/24/22 04:08 Pulse 74 05/24/22 04:08 Resp 15 05/24/22 04:08 BP 119/71 05/24/22 04:08 Pulse Ox 97 05/24/22 04:08 O2 Del Method 05/24/22 04:08 Discharge Plan Discharge Patient Disposition: Home Condition: Good Prescriptions: New oxycodone-acetaminophen 5-325 mg Tablet 1 tab PO Q6H PRN (Reason: Moderate To Severe Pain) Qty: 20 0RF docusate sodium 100 mg Capsule 100 mg PO BID Qty: 30 0RF ferrous sulfate 325 mg (65 mg iron) Tablet,Delayed Release (Dr/Ec) 325 mg PO DAILY Qty: 30 0RF ibuprofen 800 mg Tablet 800 mg PO TID Qty: 60 0RF Continued prenat.vits,omar,wdg-wnyj-tommi 1 tab PO DAILY Qty: 30 0RF No Action (DME) Electric Breast Pump See Rx Instructions .Route .MEDSUPPLY Qty: 1 0RF Rx Instructions: As directed - To be used after delivery Discharge Orders: Discharge Order (Routine); Ordered 05/24/22 Ordered By: Jamal Reed Referrals: Jamal Reed MD [Primary Care Provider] - 7-10 days (Please make follow-up appoint with Dr. Reed for 1 week and 6 weeks .) Discharge Diet: Regular Discharge Activity: Limit activity as instructed Patient Instructions: Opioid Safety Activity Restrictions/Additional Instructions: To life anything heavier than your in the car seat for the first 3 weeks, then gradually increase. Full lifting at 6 weeks . No driving for the first 2 weeks. If you have any concern for infection in your incision site, please contact Dr. Reed right away. Discharge Attestations Time Spent in Discharge Care*: greater than 30 min Quality Metrics Clinical Quality Measures [ No reported AMI, CVA or VTE this stay] Coding Level of Care Code Acute Chg FW DC note Diagnoses Delivery by section Status post section Z98.891
[2022-05-24] MEDS: ibuprofen 800 mg tablet PO (08:47)
[2022-05-24] MEDS: prenatal vitamin Capsule 1 CAP PO (08:47)
[2022-05-24 10:08] VITALS: BP 104/69; PULSE 87; RESP 15; TEMP 37.1
== END 2022-05-24 09:37 | disposition home or self-care (01) | DRG 787 ==
LOC: OBGYN 09:05
PROVIDERS: Admitting Provider Family Medicine; PCP Family Medicine; Visit Provider Family Medicine
PROC: 10D00Z1 Extraction of Products of Conception, Low, Open Approach (ICD-10-PCS; CPT 59514; principal; 2022-05-22 07:05)
DX: O69.1XX0 Labor and delivery complicated by cord around neck, with compression, not applicable or unspecified (principal); O41.03X0 Oligohydramnios, third trimester, not applicable or unspecified; O99.824 Streptococcus B carrier state complicating childbirth; O36.5930 Maternal care for other known or suspected poor fetal growth, third trimester, not applicable or unspecified; O99.334 Smoking (tobacco) complicating childbirth; F17.200 Nicotine dependence, unspecified, uncomplicated; O76 Abnormality in fetal heart rate and rhythm complicating labor and delivery; Z3A.39 39 weeks gestation of pregnancy; Z37.0 Single live birth
CPT/HCPCS: 36415; 51702; 59409; 85025; 85027; 96374; 96376; J0290; J0595; J1580; J1885; J2274; J2405; J2765; J2795; J3010; J3490; J7030

== ENCOUNTER → 2023-01-30 10:53 | Outpatient (BNVA) | payer BC, MEDICAID, SELFPAY | PROVIDERS: PCP Family Medicine; Visit Provider Family Medicine | DX: O99.891 Other specified diseases and conditions complicating pregnancy (principal); R30.0 Dysuria | CPT/HCPCS: 80307; 81000; 81025; 84144; 84443; 84702; 85025; 86592; 86762; 86803; 86850; 86900; 87086; 87340; 87806 ==

== ENCOUNTER → 2023-02-08 11:55 | Outpatient (BNVA) | payer BC, MEDICAID, SELFPAY | PROVIDERS: PCP Family Medicine; Visit Provider Family Medicine | DX: Z34.90 Encounter for supervision of normal pregnancy, unspecified, unspecified trimester (principal) | CPT/HCPCS: 87491; 87591; 87624 ==

== ENCOUNTER 2023-02-14 10:15 | Outpatient (CLI) | payer BC, MEDICAID, SELFPAY ==
--- NOTE | 2023-02-14 10:30 | US_ITS ---
WS: [id number] Exam: US OB <=14 wk fetus w transvag Date/Time of Exam: 02/14/2023 10:28 AM Reason For Exam: Dating US Viable intrauterine with single pole noted. Enders-rump length measurements average 0. 95 cm consistent with a 7 week gestational age . A 3.2 mm yolk sac was noted. Heart rate was 147 bpm. No complications were noted. Corpus luteum cyst noted in the right ovary. The ovaries were otherwise unremarkable with normal vascular flow. No adnexal mass or free fluid in the pelvis. US/US OB <=14 wk fetus w transvag IMPRESSION: Viable intrauterine with single fetus estimated at 7w0d ultrasound ED D 10/03/2023.
== END 2023-02-14 10:16 | disposition home or self-care (01) ==
PROVIDERS: PCP Family Medicine; Visit Provider Family Medicine
DX: Z34.91 Encounter for supervision of normal pregnancy, unspecified, first trimester (principal); Z3A.01 Less than 8 weeks gestation of pregnancy
CPT/HCPCS: 76801; 76817; 80307; 81000; 81025; 84144; 84443; 84702; 85025; 86592; 86762; 86803; 86850; 86900; 87086; 87340; 87806

== ENCOUNTER 2023-05-17 12:29 | Outpatient (CLI) | payer BC, MEDICAID, SELFPAY ==
--- NOTE | 2023-05-17 12:45 | US_ITS ---
WS: [id number] OBSTETRICAL ULTRASOUND COMPLETE HISTORY: Anatomy COMPARISON: 02/14/2023 Single intrauterine gestation in variable presentation. Cervix is Closed and normal length. Cervical length is 3.4 cm. Normal amount of amniotic fluid surrounds the fetus. Placenta: Anterior, no previa or abruption. Placenta grade 1 Heart: 144 BPM. Four chambers are identified. RIGHT and LEFT outflow tracts are unremarkable. Anatomy: Intracranial structures and spine are normal. kidneys, stomach and urinary bladd er are unremarkable. Abdominal wall, three-vessel cord and cord insertion site are normal. 4 extremities are present. profile: Unremarkable. Gender: Male. measurements: BPD = 4.5 cm = 19w5d; HC = 17.8 cm = 20w2d; AC = 14.7 cm = 20w0d; FL = 3.3 cm = 20w1d; Biometry is internally concordant. AGA by ultrasound: 20w0d ZOË by ultrasound: 10/04/2023 IMPRESSION: 1. Single intrauterine gestation of 20w0d with an ZOË of 10/04/2023. Appropriate growth since the [facility] trimester ultrasound. 2. Unremarkable screening survey of anatomy.
== END 2023-05-17 12:30 | disposition home or self-care (01) ==
PROVIDERS: PCP Family Medicine; Visit Provider Family Medicine
DX: Z34.92 Encounter for supervision of normal pregnancy, unspecified, second trimester (principal); Z3A.20 20 weeks gestation of pregnancy
CPT/HCPCS: 76805

== ENCOUNTER → 2023-06-29 10:13 | Outpatient (BNVA) | payer BC, MEDICAID, SELFPAY | PROVIDERS: PCP Family Medicine; Visit Provider Family Medicine | DX: Z34.80 Encounter for supervision of other normal pregnancy, unspecified trimester (principal); Z3A.00 Weeks of gestation of pregnancy not specified | CPT/HCPCS: 82950 ==

== ENCOUNTER → 2023-08-09 11:01 | Outpatient (BNVA) | payer BC, MEDICAID, SELFPAY | PROVIDERS: PCP Family Medicine; Visit Provider Family Medicine | DX: Z51.81 Encounter for therapeutic drug level monitoring (principal); Z34.83 Encounter for supervision of other normal pregnancy, third trimester | CPT/HCPCS: 85025 ==

== ENCOUNTER 2023-08-29 14:00 | Outpatient (CLI) | payer BC, MEDICAID, SELFPAY ==
--- NOTE | 2023-08-29 14:15 | US_ITS ---
WS: [id number] LIMITED OBSTETRICAL ULTRASOUND HISTORY: Measuring small for gestational age COMPARISON: 02/14/2023, 05/17/2023 Presentation: Vertex Cervix: Closed and normal length. Placenta: Anterior, no no previa or abruption. Grade: 1 HEART: FHR of 138 BPM. measurements: BPD = 8.7 cm = 35w1d; 58% HC = 31.7 cm = 35w5d; 32% AC = 31.1 cm = 35w0d; 58% FL = 6.8 cm = 34w6d; 38% AZALIA: 12.8 cm EFW: 2583 g; 63rd percent AGA by ultrasound: 35w1d ZOË by ultrasound: 10/02/2023 IMPRESSION: 1. Single intrauterine gestation of 35 weeks 1 day with an EDC of 10/02/2023. 2. Normal growth since the first trimester ultrasound. No growth asymmetry or restriction.
== END 2023-08-29 14:01 | disposition home or self-care (01) ==
LOC: RAD 14:00
PROVIDERS: PCP Family Medicine; Visit Provider Family Medicine
DX: Z34.93 Encounter for supervision of normal pregnancy, unspecified, third trimester (principal)
CPT/HCPCS: 76815

== ENCOUNTER → 2023-09-06 09:24 | Outpatient (BNVA) | payer BC, MEDICAID, SELFPAY | PROVIDERS: PCP Family Medicine; Visit Provider Family Medicine | DX: Z36.4 Encounter for antenatal screening for fetal growth retardation (principal) | CPT/HCPCS: 87081 ==

== ENCOUNTER → 2023-09-14 08:46 | Day surgery (SDC) | payer BC, MEDICAID, SELFPAY | PROVIDERS: PCP Family Medicine; Visit Provider Family Medicine | DX: Z01.818 Encounter for other preprocedural examination (principal) ==

== ENCOUNTER 2023-09-21 13:52 | Outpatient (CLI) | payer BC, MEDICAID, SELFPAY ==
--- NOTE | 2023-09-21 14:15 | US_ITS ---
WS: [id number] LIMITED OBSTETRICAL ULTRASOUND HISTORY: Measuring SGA COMPARISON: 02/14/2023, 08/29/2023 Presentation: Vertex. Cervix: Closed and normal length. Placenta: Anterior, no previa or abruption. Grade: 2 HEART: FHR of 160 BPM. measurements: BPD = 9.6 cm = 39w0d; 89% HC = 33.4 cm = 38w2d; 30% AC = 33.0 cm = 37w0d; 31% FL = 7.7 cm = 39w2d; 78% AZALIA: 10.5 cm EFW: 3342 g; 74% AGA by ultrasound: 38w3d ZOË by ultrasound: 10/02/2023 IMPRESSION: 1. Single intrauterine gestation of 38 weeks 3 days with an EDC of 10/02/2023. 2. No growth restriction. 3. Estimated weight at the 74th percentile for age. 4. No growth asymmetry.
== END 2023-09-21 13:53 | disposition home or self-care (01) ==
LOC: RAD 13:52
PROVIDERS: PCP Family Medicine; Visit Provider Family Medicine
DX: O36.5930 Maternal care for other known or suspected poor fetal growth, third trimester, not applicable or unspecified (principal); Z3A.38 38 weeks gestation of pregnancy
CPT/HCPCS: 76815

== ENCOUNTER 2023-10-01 05:17 | Inpatient (IN) | payer BC, MEDICAID, SELFPAY ==
--- NOTE | 2023-09-14 10:02 | ANES.PREANE2 ---
Pre-Anesthetic Assessment Height/Weight: Height 1.6 m Operation Date: 10/01/23 07:20 Proposed Procedures p Repeat w/ bilateral tubal ligation 14598+ 47229,O34.219(Bilateral) - Jamal Reed MD Familial anesthetic complications: none Was Beta Ferdinand taken within 24 hours: N/A Was Clonidine taken within 24 hours: N/A Social No alcohol and No tobacco (h/o smoking) Exam alert, oriented x 3, clear to auscultation bilaterally and regular rate & rhythm Airway Submandibular: within normal limits Cervical ROM: within normal limits Mallampati: Class II Dentition: full Anesthetic Plan ASA status: 2 Anesthesia: Regional (specify below) (SAB (repeat C/S)) Medications/Allergies Home Medications Medication Instructions Recorded Confirmed Last Taken Type prenat.vits,omar,dwl-lurj-eiqku 1 tab PO DAILY #30 tabs 05/24/22 09/06/23 04/30/22 10:00 Rx Electric Breast Pump #1 ea 08/23/23 09/06/23 Unknown Rx Allergies Allergy/AdvReac Type Severity Reaction Status Date / Time doxycycline Allergy Mild rash Verified 06/29/23 09:53 ciprofloxacin [From Cipro] Allergy Unknown Rash, Verified 06/29/23 09:53 Itching trimethoprim [From Bactrim] Allergy Unknown Unknown Verified 06/29/23 09:53 sulfamethoxazole AdvReac Unknown rash and Verified 06/29/23 09:53 [From Bactrim] stomach pain [facility] Anesthesia Medical History UTI (urinary tract infection) Surgical History Status post section Family History Grandfather Cancer Prostate Diabetes Grandmother Diabetes Social History Smoking and tobacco/nicotine status: former use of tobacco/nicotine Second hand smoke exposure: No Alcohol intake: never Substance/Drug Use: never Adopted: No Caregiver/support person: No Lives independently: Yes Household members: family Marital status: Single Highest education level completed: High School Graduate service: No Current occupational status: employed Pets and animals: Yes Do you think of yourself as: Straight/Heterosexual Current gender identity: Female Data Anesthesia Cardiac Studies: No Data to Display
[2023-10-01] VITALS (25 sets, daily range): BP systolic 102–139; BP diastolic 55–84; PULSE 53–79; RESP 14–18; TEMP 34.4–36.5; O2SAT 94–99; BMI 26.4
[2023-10-01 06:03] LABS: Basophils % 0.5 %; Eosinophils % 0.5 %; Hematocrit 37.1 % (36-47); Lymphocytes # 1.9 10^3/uL (0.8-4.8); Lymphocytes % 23.6 %; Mean Corpuscular HGB Conc 33.7 g/dL (30-55); Mean Corpuscular Hemoglobin 30.9 pg (27-33); Mean Corpuscular Volume 91.6 fl (85-98); Mean Platelet Volume 10.3 fL (7.4-10.4); Monocytes # 0.5 10^3/uL (0.2-0.9); Monocytes % 5.8 %; Neutrophils # 5.49 10^3/uL (1.8-7.7); Neutrophils % 69.2 %; Nucleated Red Blood Cells % 0 %; Platelet Count 165 10^3/cmm (157-399); Red Blood Count 4.05 10^6/uL (3.85-5.65); Red Cell Distribution Width 13.7 % (12.1-15.1); White Blood Count 7.93 10^3/uL (3.29-11.43)
[2023-10-01] MEDS: lactated ringers 1,000 ML 999 ML IV (06:15)
--- NOTE | 2023-10-01 06:45 | P.HP_ITS ---
Providers/Chief Complaint 2 Admitting Physician: Jamal Reed MD Primary Care Provider: Jamal Reed MD History of Present Illness Sis is a 23 y/o @ 39.5 wks by 7 wk US inconsistent with LMP. Preg c/b h/o asymmetric IUGR, h/o borderline IUGR, h/o LTCS. The patient presents for a scheduled repeat low-transverse section with bilateral tubal ligation. She has been feeling well. She denies any chest pains, cough, shortness of breath, nausea, vomiting, diarrhea, constipation, fever, dysuria. She has not had any leakage of fluid or vaginal bleeding. heart tones are in the mid 120s with moderate variability and good accelerations with a category 1 tracing. She last ate and drank last night before midnight. Medications/Allergies Home Medications Medication Instructions Recorded Confirmed Last Taken Type prenat.vits,omar,jmi-qrcx-sbwky 1 tab PO DAILY #30 tabs 05/24/22 10/01/23 1 Day Ago Rx ~09/30/23 Electric Breast Pump #1 ea 08/23/23 09/28/23 Unknown Rx Allergies Allergy/AdvReac Type Severity Reaction Status Date / Time doxycycline Allergy Mild rash Verified 10/01/23 05:29 ciprofloxacin [From Cipro] Allergy Unknown Rash, Verified 06/29/23 09:53 Itching trimethoprim [From Bactrim] Allergy Unknown Unknown Verified 06/29/23 09:53 sulfamethoxazole AdvReac Unknown rash and Verified 06/29/23 09:53 [From Bactrim] stomach pain PFSH Acute 2 PFSH: Medical History UTI (urinary tract infection) Surgical History Status post section Family History Grandfather Cancer Prostate Diabetes Grandmother Diabetes Social History Smoking and tobacco/nicotine status: former use of tobacco/nicotine Second hand smoke exposure: No Alcohol intake: never Substance/Drug Use: never Adopted: No Caregiver/support person: No Lives independently: Yes Household members: family Marital status: Single Highest education level completed: High School Graduate service: No Current occupational status: employed Pets and animals: Yes Do you think of yourself as: Straight/Heterosexual Current gender identity: Female Female Reproductive History: : 2 Vitals/I&O/Wt Last Vital Signs Pulse 75 10/01/23 06:41 BP 119/67 10/01/23 06:41 O2 Del Method Room Air 10/01/23 05:23 Weight last 48 hrs Weight 149 lb 8 oz Physical Exam 2 Narrative: General: Alert and oriented x3 Eyes: Pupils equal round and reactive to light and accommodation Mouth: Mucous membranes moist, pharynx non-erythematous Cardiac: Regular rate and rhythm without murmurs Lungs: Clear to auscultation bilaterally without wheezes, crackles or rhonchi Abdomen: Soft, non-tender, fundus consistent with gestational age Extremities: Trace edema in the bilateral lower extremities Data 10/01/23 05:54 A&P Assessment and plan (1) Supervision of normal intrauterine in multigravida: The patient is doing well at this time. We will proceed with scheduled repeat low-transverse section with bilateral tubal ligation. All questions were answered. The patient and are in agreement with the current plan of care. Qualifiers: Trimester: third trimester Qualified Code(s): Z34.83 - Encounter for supervision of other normal , third trimester Attestations 2 Medical Necessity Statement*: The patient will be here for greater than 2 midnights due to routine intrapartum and management of labor and delivery. Coding Level of Care Code Acute Code for Chg Fwd Diagnoses Supervision of normal intrauterine in multigravida in third trimester Z34.83 Trimester: third trimester
[2023-10-01] MEDS: famotidine 20 mg/2 mL INJ IVP (06:47)
[2023-10-01] MEDS: citric acid-sodium citrate 30 mL UDC PO (06:47)
[2023-10-01] MEDS: ceFAZolin 2,000 MG in sodium chloride 0.9% (plus) 50 ML 100 MG IV (06:50)
--- NOTE | 2023-10-01 08:38 | ANES.PREANE2 ---
Pre-Anesthetic Assessment Height/Weight: Height 1.6 m Weight 67.812 kg Pulse BP O2 Del Method 75 119/67 Room Air 10/01/23 06:41 10/01/23 06:41 10/01/23 05:23 Operation Date: 10/01/23 07:00 Proposed Procedures p Repeat w/ bilateral tubal ligation 84494+ 77166,O34.219(Bilateral) - Jamal Reed MD Was Beta Ferdinand taken within 24 hours: N/A Was Clonidine taken within 24 hours: N/A Last intake: Intake Last Liquid Date 10/01/23 Last Liquid Time 23:00 Last Solid Date 09/30/23 Last Solid Time 19:00 Social No alcohol and No tobacco Exam alert and oriented x 3 Airway Submandibular: within normal limits Cervical ROM: within normal limits Mallampati: Class I Dentition: full History/ROS No significant history except as noted Pulmonary None reported CV/HEM None reported None reported Hepatic None reported GI None reported Metabolic None reported Musc/skel None reported Neuropsych None reported Anesthetic Plan ASA status: 2 Anesthesia: Eval. for regional block Risk of > 500 ml blood loss (7ml/kg in children): Yes, adequate IV access and fluids planned Medications/Allergies Home Medications Medication Instructions Recorded Confirmed Last Taken Type prenat.vits,omar,pqm-tucl-uekoq 1 tab PO DAILY #30 tabs 05/24/22 10/01/23 1 Day Ago Rx ~09/30/23 Electric Breast Pump #1 ea 08/23/23 09/28/23 Unknown Rx Allergies Allergy/AdvReac Type Severity Reaction Status Date / Time doxycycline Allergy Mild rash Verified 10/01/23 05:29 ciprofloxacin [From Cipro] Allergy Unknown Rash, Verified 06/29/23 09:53 Itching trimethoprim [From Bactrim] Allergy Unknown Unknown Verified 06/29/23 09:53 sulfamethoxazole AdvReac Unknown rash and Verified 06/29/23 09:53 [From Bactrim] stomach pain [facility] Anesthesia Medical History UTI (urinary tract infection) Surgical History Status post section Family History Grandfather Cancer Prostate Diabetes Grandmother Diabetes Social History Smoking and tobacco/nicotine status: former use of tobacco/nicotine Second hand smoke exposure: No Alcohol intake: never Substance/Drug Use: never Adopted: No Caregiver/support person: No Lives independently: Yes Household members: family Marital status: Single Highest education level completed: High School Graduate service: No Current occupational status: employed Pets and animals: Yes Do you think of yourself as: Straight/Heterosexual Current gender identity: Female Female Reproductive History : 2 Data Anesthesia 10/01/23 05:54 Short CBC 10/01/23 Range/Units 05:54 WBC 7.93 (3.29-11.43) 10^3/uL Hgb 12.50 (11.27-16.99) g/dL Hct 37.1 (36-47) % MCV 91.6 (85-98) fl Plt Count 165 (157-399) 10^3/cmm Neut % (Auto) 69.2 % Neut # (Auto) 5.49 (1.8-7.7) 10^3/uL Blood Bank 10/01/23 05:54 Blood Type O Positive Rho(D) Type Rh positive Antibody Screen Negative Cardiac Studies: No Data to Display
--- NOTE | 2023-10-01 09:00 | PM.OP ---
Operative Report Date of procedure: October 01, 2023 Surgeon: Jamal Reed MD Brief History: Sis is a 23 y/o G2 NOW P2 status post repeat low-transverse section with bilateral tubal ligation @ 39.5 wks by 7 wk US inconsistent with LMP. Preg c/b h/o asymmetric IUGR, h/o borderline IUGR without signs of these during this , h/o LTCS. The patient presented for a scheduled repeat low-transverse section with bilateral tubal ligation. She has been feeling well. She denied any chest pains, cough, shortness of breath, nausea, vomiting, diarrhea, constipation, fever, dysuria. She has not had any leakage of fluid or vaginal bleeding. heart tones were in the mid 120s with moderate variability and good accelerations with a category 1 tracing. The patient wished to have a repeat low-transverse section with bilateral tubal ligation. Procedure: After informed consent was obtained, the patient was taken to the operating room and the patient was prepped and draped in a normal sterile fashion in the dorsal supine position.? A spinal was placed and adequate anesthesia was obtained.? At 7:23 AM on 10/01/2023 a Pfannenstiel skin incision was made and carried through to the underlying layer of fascia using a scalpel.? The fascial incision was then extended laterally using curved Mayos.? The fascia was then grasped with Michael clamps and the underlying rectus muscles were dissected off taking care to avoid injury to the underlying tissues.? The peritoneum was entered bluntly with Metzenbaums and then cut using bandage scissors due to significantly strong scar tissue.? It was then bluntly.? A small amount of scar tissue was noted on the left lower uterus attaching to the anterior peritoneal wall. This was reduced. The bladder blade was placed and the vesicouterine peritoneum was well below the lower uterine segment of the uterus.? The uterine incision was made in the lower uterine segment in a transverse fashion with the scalpel at 7:31 AM.? The amniotic membrane was entered bluntly and a small to moderate amount of clear fluid was noted.? Uterine pressure was placed and the 's head delivered without complication at 7:33 AM on 10/01/2023.? There was no nuchal cord.? The mouth and nose were suctioned.? The rest of the infant delivered without difficulty.? The infant took a breath immediately upon delivery.? The cord was clamped and cut and the infant was handed to the awaiting pediatric nurses.? The placenta was then manually expressed.? The uterus was exteriorized from the abdomen.? A wet lap was used to clear the uterus of clots and debris.? The bladder blade was reinserted and the uterine incision was closed using 0 chromic in a running locking fashion.? The uterus was noted to be firm.? A second layer of the same suture was used in the same manner.? Excellent hemostasis was obtained. The bilateral fallopian tubes were located. Babcocks were used to raise the fallopian tube segment and a window was burned underneath the right fallopian tube. 0 chromic was used tie off a section of the tube on each side. A tube segment was removed using Metzenbaums. The remaining fallopian tube segment and was cauterized on each side. A modified Haugan technique was used. The fallopian tube segment was sent to pathology. This was repeated on the left side. Excellent hemostasis was noted. Next the posterior cul-de-sac was inspected and was cleared of any blood. The gutters were cleared of any further clots and debris and the uterine incision was again inspected and hemostasis was noted.? The subfascial tissue was inspected for hemostasis and the peritoneum was re-approximated using 2-0 plain in a running fashion.? The fascia was then re-approximated using 0 Vicryl in a running fashion.? The subcutaneous tissue was inspected for hemostasis.? Chidi's fascia was then re-approximated using 3-0 plain in a running fashion.? Good hemostasis was noted.? The subcutaneous tissue was then re-approximated using a subcuticular stitch.? The patient tolerated the procedure well and was recovered in stable condition.? Estimated blood loss was 400 mL. Urine in the Evangelista catheter was clear. The patient was taken to recovery in good condition.
[2023-10-01] MEDS: ketorolac 30 mg/mL INJ IVP ×2 (14:51→21:08)
[2023-10-01] MEDS: dextrose 5%-lactated ringers 1,000 ML 125 ML IV (14:51)
--- NOTE | 2023-10-01 16:13 | ANE.PACU2 ---
Inpatient post-anesthesia follow up: Airway intact: Yes Vital signs: Temperature 97.2 F Pulse Rate 53 Respiratory Rate 16 Blood Pressure 107/59 Pulse Oximetry 97 Oxygen Delivery Me thod Room Air Oxygen Flow Rate Fraction of Inspir ed Oxygen Hydration adequate: Yes Nausea and vomiting: No Pain level: 2 Mental status: Baseline
[2023-10-01] MEDS: docusate sodium 100 mg Capsule PO (21:08)
[2023-10-01 21:25] LABS: Hematocrit 34.1 % (36-47); Mean Corpuscular HGB Conc 33.1 g/dL (30-55); Mean Corpuscular Hemoglobin 31.2 pg (27-33); Mean Corpuscular Volume 94.2 fl (85-98); Mean Platelet Volume 10.4 fL (7.4-10.4); Platelet Count 148 10^3/cmm (157-399); Red Blood Count 3.62 10^6/uL (3.85-5.65); Red Cell Distribution Width 13.7 % (12.1-15.1); White Blood Count 9.33 10^3/uL (3.29-11.43)
[2023-10-02] MEDS: ketorolac 30 mg/mL INJ IVP (03:26)
[2023-10-02 05:59] VITALS: BP 116/55; PULSE 56
[2023-10-02 06:00] VITALS: RESP 18; TEMP 36.4
[2023-10-02 09:30] VITALS: BP 111/60; PULSE 69
[2023-10-02] MEDS: prenatal vitamin Capsule 1 CAP PO (09:37)
[2023-10-02] MEDS: ibuprofen 800 mg tablet PO ×2 (10:55→14:40)
[2023-10-02 11:40] VITALS: BP 104/60; PULSE 55
--- NOTE | 2023-10-02 15:08 | P.DS_ITS ---
Discharge Providers Date of Admission: 10/01/23 05:17 Date of Discharge: October 02, 2023 Attending Provider at Admission: Jamal Reed MD Attending Provider at Discharge: Jamal Reed MD Primary Care Provider: Jamal Reed MD Diagnoses at Discharge Discharge Diagnosis (1) Supervision of normal intrauterine in multigravida: Status: Acute Qualifiers: Trimester: third trimester Qualified Code(s): Z34.83 - Encounter for supervision of other normal , third trimester Reason for Visit Reason for Visit: Brief History: Sis is a 23 y/o G2 now P2 status post repeat low-transverse section with bilateral tubal ligation @ 39.5 wks by 7 wk US inconsistent with LMP. Preg c/b h/o asymmetric IUGR, h/o borderline IUGR without signs of these during this , h/o LTCS x1. The patient presented for a scheduled repeat low-transverse section with bilateral tubal ligation. She had been feeling well. Hospital Course Hospital Course The patient had repeat low-transverse section with bilateral tubal ligation. She had no complications related to this. she has been doing well. Her bleeding has decreased well. Her pain is well-controlled. Her blood pressure is in a good range. She is ambulating, voiding, tolerating food by mouth. Her pulse has been a little on the low side in the 50s after surgery, however at the time of discharge it is increasing into the upper 60s. She is asymptomatic with this and is not having any signs of chest pains or dizziness. If she is having any symptoms she is to let me know. We will have her follow-up with me as an outpatient in the next 7 to 10 days. Routine discharge instructions were discussed in terms of risk for infection. All questions were answered. The patient is requesting to be discharged home today. Physical Exam Narrative: General: Alert and oriented x3 Cardiac: Regular rate and rhythm without murmurs Lungs: Clear to auscultation bilaterally without wheezes, crackles or rhonchi Abdomen: Soft, mild tenderness over uterus. The uterus is firm and 2 cm below the umbilicus. Incision is clean and dry without signs of infection dehiscence. Extremities: Trace edema in the bilateral lower extremities Urinary Catheter Management: Evangelista: Cath Placed During This Visit: yes, but has since been removed by the nurse Reason for Continuing Indwelling Catheter: Not indwelling catheter Urinary Catheter Date of Insertion: 10/01/23 Urinary Catheter Time of Insertion: 07:15 Date Urinary Catheter Removed: 10/01/23 Time Urinary Catheter Discontinued: 16:30 Discharge Data Studies Completed and Pending Pending at discharge Category Date Time Status Pathology: Surgical [PTH] Routine Pth 10/01/23 07:50 Received Laboratory Results WBC 9.33 10^3/uL (3.29-11.43) 10/01/23 21:15 RBC 3.62 10^6/uL (3.85-5.65) L 10/01/23 21:15 Hgb 11.30 g/dL (11.27-16.99) 10/01/23 21:15 Hct 34.1 % (36-47) L 10/01/23 21:15 MCV 94.2 fl (85-98) 10/01/23 21:15 MCH 31.2 pg (27-33) 10/01/23 21:15 MCHC 33.1 g/dL (30-55) 10/01/23 21:15 RDW 13.7 % (12.1-15.1) 10/01/23 21:15 Plt Count 148 10^3/cmm (157-399) L 10/01/23 21:15 MPV 10.4 fL (7.4-10.4) 10/01/23 21:15 Neut % (Auto) 69.2 % 10/01/23 05:54 Lymph % (Auto) 23.6 % 10/01/23 05:54 [place] % (Auto) 5.8 % 10/01/23 05:54 Eos % (Auto) 0.5 % 10/01/23 05:54 Baso % (Auto) 0.5 % 10/01/23 05:54 Neut # (Auto) 5.49 10^3/uL (1.8-7.7) 10/01/23 05:54 Lymph # (Auto) 1.9 10^3/uL (0.8-4.8) 10/01/23 05:54 [place] # (Auto) 0.5 10^3/uL (0.2-0.9) 10/01/23 05:54 Eos # (Auto) 0.0 10^3/uL (0.0-0.8) 10/01/23 05:54 Baso # (Auto) 0.0 10^3/uL (0.0-0.1) 10/01/23 05:54 Nucleated RBC % (auto) 0 % 10/01/23 05:54 Nucleated RBCs # 0.0 /100WBC 10/01/23 05:54 Blood Type O Positive 10/01/23 05:54 Rho(D) Type Rh positive 10/01/23 05:54 Antibody Screen Negative 10/01/23 05:54 Vitals Last Vital Signs Temp 97.6 F 10/02/23 06:00 Pulse 55 L 10/02/23 11:40 Resp 18 10/02/23 06:00 BP 104/60 10/02/23 11:40 Pulse Ox 97 10/01/23 09:25 O2 Del Method Room Air 10/02/23 06:00 Discharge Plan Discharge Patient Disposition: Home Condition: Stable Prescriptions: New ibuprofen 800 mg Tablet 800 mg PO TID Qty: 60 0RF hydrocodone-acetaminophen 5-325 mg Tablet 1 - 2 tab PO Q4H PRN (Reason: Moderate To Severe Pain) Qty: 20 0RF ferrous sulfate 325 mg (65 mg iron) Tablet,Delayed Release (Dr/Ec) 325 mg PO BIDWM Qty: 30 0RF Continued prenat.vits,omar,xmc-gzsr-vhwur 1 tab PO DAILY Qty: 30 0RF No Action (DME) Electric Breast Pump See Rx Instructions .Route .MEDSUPPLY Qty: 1 0RF Rx Instructions: As directed - To be used after delivery Discharge Orders: Discharge Order (Routine); Ordered 10/02/23 Ordered By: Jamal Reed Referrals: Jamal Reed MD [Primary Care Provider] - 10/11/23 1:50 pm Discharge Diet: Regular Discharge Activity: Limit activity as instructed Patient Instructions: Depression (DC), Preeclampsia and Eclampsia After Delivery (GEN), Hemorrhage (DC), OB Discharge Report, OB Food/Drug Interaction Guide, OB Care at Home, Opioid Safety, OB Home Care, Abnormal Bleeding Activity Restrictions/Additional Instructions: Do not lift anything heavier than your in the car seat for the first 3 weeks, then gradually increase. Nothing per vagina for 6 weeks. Showers are recommended instead of baths for the first 6 weeks. No driving for 2 weeks. If you have any concern for infection in your incision site, please call Dr. Reed's office right away. Discharge Attestations Time Spent in Discharge Care*: greater than 30 min Quality Metrics Clinical Quality Measures [ No reported AMI, CVA or VTE this stay] Coding Level of Care Code Acute Code for [facility] Diagnoses Supervision of normal intrauterine in multigravida in third trimester Z34.83 Trimester: third trimester
[2023-10-02 15:55] VITALS: BP 119/64; PULSE 68; TEMP 36.6
[2023-10-02 17:14] VITALS: BP 119/64; PULSE 68; TEMP 36.6
== END 2023-10-02 17:14 | disposition home or self-care (01) | DRG 785 ==
PROVIDERS: Admitting Provider Family Medicine; PCP Family Medicine; Visit Provider Family Medicine
PROC: 10D00Z1 Extraction of Products of Conception, Low, Open Approach (ICD-10-PCS; CPT 59514; principal; 2023-10-01 07:00)
DX: O34.211 Maternal care for low transverse scar from previous cesarean delivery (principal); N85.8 Other specified noninflammatory disorders of uterus; Z3A.39 39 weeks gestation of pregnancy; Z37.0 Single live birth; Z23 Encounter for immunization
CPT/HCPCS: 36415; 51702; 58611; 59409; 85025; 85027; 86850; 86900; 88302; 96374; J0690; J1885; J2250; J2274; J2371; J2405; J3490; J7030; J7120; J7121

== ENCOUNTER → 2023-10-10 09:45 | Outpatient (BNVA) | payer BC, MEDICAID, SELFPAY | PROVIDERS: PCP Family Medicine; Visit Provider Clinical Nurse Specialist Adult Health | DX: N39.0 Urinary tract infection, site not specified (principal) | CPT/HCPCS: 81000; 87086 ==

== ENCOUNTER 2023-10-18 13:07 | Outpatient (CLI) | payer BC, MEDICAID, SELFPAY ==
--- NOTE | 2023-10-18 13:00 | CT_ITS ---
WS: [id number] CT ABDOMEN PELVIS TECHNIQUE: Contrast-enhanced CT of the abdomen and pelvis with coronal and sagittal reformatted image s. CLINICAL INFORMATION: Acute abdominal pain, fever COMPARISON: None. DLP: 281.[address] scans at [facility] use at least one of these dose optimization techniques: automated e xposure control; mA and/or kV adjustment per patient size (includes targeted exams where dose is matc hed to clinical indication); or iterative reconstruction. FINDINGS: Normal liver. Normal spleen. Normal portal vein and splenic vein. Lung bases are well aerated. Normal pancreatic parenchymal enhancement. Adrenal glands are normal. No hydronephrosis. Normal renal paren chymal enhancement. Urine distended bladder. Normal caliber abdominal aorta. Recent postoperative changes . Urine distended bladder. Enlarged heterogeneous ut erus with diffuse heterogeneous enhancement. Low-attenuation fluid or hematoma in the fundal endometr ium. Small moderate free fluid in the cul-de-sac. Mild inflammatory stranding and edema in the lower abdomen and pericolic gutters and about the uterus. This can be seen with endometrial hiatus. Mild sm all bowel thickening with enhancement and a few air-fluid levels likely due to postoperative ileus. R etroverted uterus. IMPRESSION: 1. enlarged heterogeneous uterus 2. Low-attenuation heterogeneous endometrial fluid collection in the uterine fundus with diffuse riaz metrial enhancement suspicious for hematoma, retained products of conception, or infection. 3. Small amount of free fluid in the cul-de-sac. 4. Urine distended bladder. 5. Mild inflammatory stranding with induration in the lower abdomen and pericolic gutters extending into the pelvis nonspecific but suspicious for endometritis. 6. Associated transmural wall thickening of the adjacent small bowel with a few air-fluid levels lik gagan postoperative ileus. 7. No hydronephrosis in either kidney. Notified Jamal Reed MD at 10/18/2023 2:19 PM. Findings discussed with patient and advised to return to Dr. Reed's clinic for further evaluation .
[2023-10-18] MEDS: iohexol 350 mg/mL 500 mL Btl (per mL) IV (13:37)
== END 2023-10-18 13:08 | disposition home or self-care (01) ==
LOC: RAD 13:07
PROVIDERS: PCP Family Medicine; Visit Provider Family Medicine
DX: R10.31 Right lower quadrant pain (principal); R10.32 Left lower quadrant pain
CPT/HCPCS: 74177; 80053; 85025; 86141; Q9967

== ENCOUNTER 2023-10-19 09:43 | Inpatient (IN) | payer BC, MEDICAID, SELFPAY ==
[2023-10-19 12:21] VITALS: BMI 22.4
[2023-10-19] MEDS: SODIUM CHLORIDE 0.9% IV (13:12)
[2023-10-19] MEDS: GENTAMICIN IV (13:12)
[2023-10-19] MEDS: clindamycin 900 MG/50 ML PREMIX 100 MG IV ×2 (13:22→22:46)
[2023-10-19 14:28] LABS: Basophils # 0.1 10^3/uL (0.0-0.1); Basophils % 0.5 %; Eosinophils # 0.2 10^3/uL (0.0-0.8); Eosinophils % 2.3 %; Hematocrit 42.4 % (36-47); Lymphocytes # 2.3 10^3/uL (0.8-4.8); Lymphocytes % 24.6 %; Mean Corpuscular HGB Conc 34.2 g/dL (30-55); Mean Corpuscular Hemoglobin 30.2 pg (27-33); Mean Corpuscular Volume 88.3 fl (85-98); Mean Platelet Volume 9.1 fL (7.4-10.4); Monocytes # 0.4 10^3/uL (0.2-0.9); Monocytes % 4.7 %; Neutrophils # 6.18 10^3/uL (1.8-7.7); Neutrophils % 67.4 %; Nucleated Red Blood Cells % 0 %; Platelet Count 406 10^3/cmm (157-399); Red Cell Distribution Width 12.2 % (12.1-15.1); White Blood Count 9.18 10^3/uL (3.29-11.43)
[2023-10-19 14:49] LABS: Alanine Aminotransferase < 5 U/L (0-33); Albumin Level 3.5 g/dL (3.5-5.2); Alkaline Phosphatase 82 U/L (35-105); Anion Gap 17.3 (5-19); Aspartate Amino Transferase 7 U/L (0-32); Blood Urea Nitrogen 7 mg/dL (6-20); Calcium 8.6 mg/dL (8.5-10.5); Carbon Dioxide 22 mmol/L (22-29); Chloride 107 mmol/L (98-107); Creatinine Clr Calc Pharmacy 186.5266; Globulin 3.5 g/dL (1.3-4.6); Glomerular Filtration Rate 196.1 mL/min (90-130); Glucose 99 mg/dL (65-115); Magnesium 1.9 mg/dL (1.7-2.3); Osmolality Calculated 294 mOsm/kg (285-295); Potassium 3.3 mmol/L (3.5-5.1); Sodium 143 mmol/L (136-145); Total Bilirubin 0.4 mg/dL (0.15-1.2)
[2023-10-19] MEDS: ampicillin 2,000 MG in sodium chloride 0.9% (plus) 50 ML 100 MG IV ×2 (14:58→20:45)
[2023-10-19 15:27] LABS: Add Urine Culture? Yes; Add Urine Microscopic? YES; Bacteria Urine TRACE /hpf; Bilirubin Urine Neg (Negative); Blood Urine 3+ (Negative); Glucose Urine UA Norm (Normal); Ketones Urine 2+ (Negative); Leukocyte Esterase Urine Negative (Negative); Nitrate Urine Negative (Negative); Protein Urine Neg (Negative); Squamous Epithelial Cell Urine 0-4 /hpf (0-5); Urine Appearance Clear (CLEAR); Urine Color Yellow (Yellow); Urobilinogen Urine Norm (Negative); pH Urine 6 (5-7)
--- NOTE | 2023-10-19 15:45 | P.HP_ITS ---
Providers/Chief Complaint 2 Admitting Physician: Jamal Reed MD Primary Care Provider: Jamal Reed MD Chief Complaint: endometriosis History of Present Illness Sis Nair is a 23 year old female who delivered via repeat low-transverse section with bilateral tubal ligation on 10/01/2023. The patient had initially done well, however developed a fever on 10/06/2023. She had a cough and urinary symptoms and was seen by our nurse practitioner and started on cefdinir for suspicion of pneumonia as she had crackles in her lung bases. Her urine grew out GBS. I saw her the following day and added azithromycin for further coverage of pneumonia as she did have crackles and rhonchi in her lungs. The patient did not have significant abdominal pain at that time. Starting on 10/14/2023, the patient began to have abdominal pain. This pain began to gradually worsen and became moderately severe in nature. She presented to our nurse practitioner again on 10/18/2023 and I saw her in conjunction. The patient had findings concerning for an acute abdomen and was sent for a stat CT. The CT scan showed signs of endometritis without signs of acute appendicitis. The patient has been febrile as well. Her bleeding has been light. Because of the findings on CT in conjunction with her elevated CRP and fever despite previously being on antibiotics, it was felt best to admit her for IV antibiotic treatment. The patient has had some nausea when she eats. She denies any constipation, but has felt like her bowel movements do not come as easily. Her stools have been soft. No blood in her stools. She denies any chest pains, shortness of breath. Her cough is clearing up well. She denies any dysuria. Her bleeding is light. She has no concerns for infection in her incision site. Review of Systems 2 Narrative: General: Admits to fevers, chills, fatigue, malaise. Ears/Nose/Throat: Denies nasal congestion, sore throat. Cardiovascular: Denies chest pains, peripheral edema. Respiratory: Denies cough, wheezing. Gastrointestinal: Denies vomiting, diarrhea, constipation. Genitourinary: Denies dysuria. Skin: Denies rash. Medications/Allergies Home Medications Medication Instructions Recorded Confirmed Last Taken Type prenat.vits,omar,pmg-xprq-iyjif 1 tab PO DAILY #30 tabs 05/24/22 10/18/23 1 Day Ago Rx ~09/30/23 Electric Breast Pump #1 ea 08/23/23 10/18/23 Unknown Rx ferrous sulfate 325 mg (65 mg 325 mg PO BIDWM #30 tabs 10/02/23 10/18/23 Unknown Rx iron) tablet,delayed release hydrocodone 5 mg-acetaminophen 325 1 - 2 tab PO Q4H PRN Moderate To 10/02/23 10/18/23 Unknown Rx mg tablet Severe Pain #20 tabs ibuprofen 800 mg tablet 800 mg PO TID #60 tabs 10/02/23 10/18/23 Unknown Rx cefdinir 300 mg capsule 300 mg PO Q12H #20 caps 10/10/23 10/18/23 Unknown Rx azithromycin 250 mg tablet See Rx Instructions PO .COMPLEX #6 10/11/23 10/18/23 Unknown Rx tabs clindamycin HCl 300 mg capsule 300 mg PO TID #21 caps 10/18/23 Unknown Rx Allergies Allergy/AdvReac Type Severity Reaction Status Date / Time doxycycline Allergy Mild rash Verified 10/10/23 10:35 ciprofloxacin [From Cipro] Allergy Unknown Rash, Verified 10/10/23 10:35 Itching trimethoprim [From Bactrim] Allergy Unknown Unknown Verified 10/10/23 10:35 sulfamethoxazole AdvReac Unknown rash and Verified 10/10/23 10:35 [From Bactrim] stomach pain PFSH Acute 2 PFSH: Medical History UTI (urinary tract infection) Surgical History History of bilateral tubal ligation 10/01/23 - Brianna Status post section x 2 - Brianna Family History Grandfather Cancer Prostate Diabetes Grandmother Diabetes Social History Smoking and tobacco/nicotine status: former use of tobacco/nicotine Second hand smoke exposure: No Alcohol intake: never Substance/Drug Use: never Adopted: No Caregiver/support person: No Lives independently: Yes Household members: family Marital status: Single Highest education level completed: High School Graduate service: No Current occupational status: employed Pets and animals: Yes Do you think of yourself as: Straight/Heterosexual Current gender identity: Female Female Reproductive History: Date of last menstrual period: 01/01/23 Vitals/I&O/Wt Last Vital Signs O2 Del Method Room Air 10/19/23 12:21 10/19/23 10/19/23 10/19/23 06:59 14:59 22:59 Intake Total 157.375 / 157.375 50 / 207.375 Balance 157.375 / 157.375 50 / 207.375 Weight last 48 hrs Weight 127 lb Physical Exam 2 Narrative: General: Alert and oriented x 3. In no acute distress. Eyes: PERRLA, EOM intact, no discharge. Mouth: No erythema or tonsilar enlargement. No masses noted. Neck: No thyromegaly. No lymphadenopathy. Heart: Regular rate and rhythm. No murmurs. Lungs: Clear to auscultation bilaterally. No wheezes, crackles or ronchi. Abdomen: Soft, moderate tenderness in the lower abdomen with moderate to severe tenderness over the uterus. Rebound tenderness noted. No hepatosplenomegaly. Bowel sounds hypoactive but present. Incision is clean and dry without signs of infection or dehiscence. Extremities: No pitting edema. Data 10/19/23 14:10 10/19/23 14:10 Micro: Microbiology 10/19/23 14:10 Blood Culture - Preliminary Blood SPECIMEN COLLECTED 10/19/23 14:10 Blood Culture - Preliminary Blood SPECIMEN COLLECTED A&P Assessment and plan (1) Endometritis following delivery: The patient has findings on CT consistent with endometritis. Curiously she does not have much bleeding, but she is certainly quite tender. We will start her on IV antibiotics with gentamicin, ampicillin and clindamycin. She did have GBS in her urine recently so we will cover for this. We will continue with IV antibiotics for 24 to 72 hours depending on her course. Once her pain is starting to improve significantly, we will be able to discharge home at that time. All questions were answered. The patient is in agreement with current plan of care. (2) Hypokalemia: The patient's potassium levels were found to be low. We will replace by mouth and recheck tomorrow. (3) Ileus due to infection: The patient was found to have an ileus and is able to tolerate some liquids by mouth. We will have her advance her diet as tolerated. This will likely improve as the infection improves as well. Attestations 2 Medical Necessity Statement*: The patient will be here for greater than 2 midnights due to treatment of endometritis that has failed outpatient therapy with oral antibiotics. Coding Level of Care Code Acute Code for [facility] Diagnoses Endometritis following delivery O86.12 Hypokalemia E87.6 Ileus due to infection K56.7; B99.9
[2023-10-19 16:02] VITALS: BP 122/74; PULSE 64; RESP 16; TEMP 36.4; O2SAT 98
[2023-10-19] MEDS: potassium chloride ER 20 mEq Tablet PO (17:17)
[2023-10-19 19:53] VITALS: BP 117/68; PULSE 77; RESP 16; TEMP 36.6; O2SAT 96
[2023-10-19 23:21] VITALS: BP 106/61; PULSE 54; RESP 14; TEMP 36.9; O2SAT 95
[2023-10-20] MEDS: ampicillin 2,000 MG in sodium chloride 0.9% (plus) 50 ML 100 MG IV ×4 (02:38→21:24)
[2023-10-20 03:13] LABS: Basophils # 0.1 10^3/uL (0.0-0.1); Basophils % 0.6 %; Eosinophils # 0.2 10^3/uL (0.0-0.8); Eosinophils % 2.5 %; Hematocrit 39.9 % (36-47); Lymphocytes % 23.6 %; Mean Corpuscular HGB Conc 33.3 g/dL (30-55); Mean Corpuscular Hemoglobin 29.8 pg (27-33); Mean Corpuscular Volume 89.3 fl (85-98); Mean Platelet Volume 9.4 fL (7.4-10.4); Monocytes # 0.6 10^3/uL (0.2-0.9); Monocytes % 7.1 %; Neutrophils # 5.56 10^3/uL (1.8-7.7); Neutrophils % 65.7 %; Nucleated Red Blood Cells % 0 %; Platelet Count 364 10^3/cmm (157-399); Red Blood Count 4.47 10^6/uL (3.85-5.65); Red Cell Distribution Width 12.3 % (12.1-15.1); White Blood Count 8.45 10^3/uL (3.29-11.43)
[2023-10-20 03:44] LABS: Alanine Aminotransferase < 5 U/L (0-33); Albumin Level 3.2 g/dL (3.5-5.2); Alkaline Phosphatase 77 U/L (35-105); Anion Gap 16.1 (5-19); Aspartate Amino Transferase 7 U/L (0-32); Blood Urea Nitrogen 5 mg/dL (6-20); Calcium 8.2 mg/dL (8.5-10.5); Carbon Dioxide 22 mmol/L (22-29); Chloride 108 mmol/L (98-107); Creatinine Clr Calc Pharmacy 186.5266; Globulin 2.9 g/dL (1.3-4.6); Glomerular Filtration Rate 196.1 mL/min (90-130); Glucose 79 mg/dL (65-115); Magnesium 1.8 mg/dL (1.7-2.3); Osmolality Calculated 292 mOsm/kg (285-295); Potassium 3.1 mmol/L (3.5-5.1); Sodium 143 mmol/L (136-145); Total Bilirubin 0.3 mg/dL (0.15-1.2); Total Protein 6.1 g/dL (6.6-8.7)
[2023-10-20 04:49] VITALS: BP 118/72; PULSE 64; RESP 16; TEMP 36.8; O2SAT 96
[2023-10-20] MEDS: clindamycin 900 MG/50 ML PREMIX 100 MG IV ×3 (06:18→22:43)
[2023-10-20 08:00] VITALS: BP 117/70; PULSE 63; RESP 16; TEMP 36.3; O2SAT 95
--- NOTE | 2023-10-20 09:20 | PC.PHAR ---
pt states she takes care of her own medications-pt states she stop taking azithromycin and cefdinir 300mg q12h on 10/15/23-pt states she takes iron 325mg daily rx filled 325mg bid-notes are made in the pharmacy comments
[2023-10-20] MEDS: potassium chloride ER 20 mEq Tablet PO (10:24)
--- NOTE | 2023-10-20 10:26 | P.PN_ITS ---
Subjective 2 Subjective: The patient continues to have lower abdominal pain. She has increased pain when she eats anything. Her appetite has been poor. She is able to tolerate liquids but has not been able to drink a large quantity. She feels that her abdominal pain is about the same as yesterday. Vitals/I&O/Wt Last Vital Signs Temp 97.4 F L 10/20/23 08:00 Pulse 63 10/20/23 08:00 Resp 16 10/20/23 08:00 BP 117/70 10/20/23 08:00 Pulse Ox 95 10/20/23 08:00 O2 Del Method Room Air 10/20/23 08:00 10/19/23 10/20/23 10/20/23 22:59 06:59 14:59 Intake Total 340 / 497.375 150 / 647.375 50 / 50 Balance 340 / 497.375 150 / 647.375 50 / 50 Weight last 48 hrs Weight 127 lb Weight 127 lb Physical Exam 2 Narrative: General: Alert and oriented x 3. In no acute distress. Heart: Regular rate and rhythm. No murmurs. Lungs: Clear to auscultation bilaterally. No wheezes, crackles or ronchi. Abdomen: Soft, moderate tenderness in the lower abdomen with moderate to severe tenderness over the uterus. Rebound tenderness still noted. No hepatosplenomegaly. Extremities: No pitting edema. Data 10/20/23 02:27 10/20/23 02:27 Micro: Microbiology 10/19/23 14:10 Blood Culture - Preliminary Blood SPECIMEN COLLECTED 10/19/23 14:10 Blood Culture - Preliminary Blood SPECIMEN COLLECTED A&P Assessment and plan (1) Endometritis following delivery: The patient has been on IV antibiotics for approximately 20 hours. So far she has not noted significant improvement from a clinical standpoint. Her labs do show decreasing CRP in general however. We will continue with IV antibiotics and recheck labs tomorrow. The patient has been having a difficult time with holding down fluids sufficiently and we will add IV fluids. We will switch her down to a GI soft diet due to not tolerating a full diet well. (2) Ileus due to infection: (3) Hypokalemia: We will continue to replace by mouth and recheck levels tomorrow. Attestations 2 Medical Necessity Statement*: The patient will be here for greater than 2 midnights due to continued treatment for endometritis. I confirm that it is medically necessary to be inpatient with IV therapy. Coding Level of Care Code Acute Code for [facility] Diagnoses Endometritis following delivery O86.12 Ileus due to infection K56.7; B99.9 Hypokalemia E87.6
[2023-10-20 12:00] VITALS: BP 147/74; PULSE 90; RESP 18; TEMP 36.8; O2SAT 97
[2023-10-20] MEDS: sodium chloride 0.9% 1,000 ML 125 ML IV ×2 (12:10→18:38)
[2023-10-20] MEDS: GENTAMICIN IV (13:38)
[2023-10-20] MEDS: SODIUM CHLORIDE 0.9% IV (13:38)
[2023-10-20 16:28] VITALS: BP 118/82; PULSE 79; RESP 18; TEMP 36.4; O2SAT 96
[2023-10-20 20:00] VITALS: BP 124/76; PULSE 54; RESP 17; TEMP 36.6; O2SAT 97
[2023-10-21] VITALS: BP 104/64; PULSE 50; RESP 17; TEMP 36.7; O2SAT 96
[2023-10-21] MEDS: ampicillin 2,000 MG in sodium chloride 0.9% (plus) 50 ML 100 MG IV ×4 (02:50→20:39)
[2023-10-21] MEDS: sodium chloride 0.9% 1,000 ML 125 ML IV ×3 (02:50→21:47)
[2023-10-21 03:39] VITALS: BP 126/79; PULSE 62; RESP 17; TEMP 36.7; O2SAT 96
[2023-10-21 05:00] VITALS: BMI 25.7
[2023-10-21] MEDS: clindamycin 900 MG/50 ML PREMIX 100 MG IV ×3 (06:07→21:48)
[2023-10-21 07:39] VITALS: BP 121/77; PULSE 61; RESP 15; TEMP 36.7; O2SAT 95
[2023-10-21 09:04] LABS: Basophils # 0.1 10^3/uL (0.0-0.1); Basophils % 0.6 %; Eosinophils # 0.2 10^3/uL (0.0-0.8); Eosinophils % 1.9 %; Hematocrit 37.5 % (36-47); Lymphocytes # 2.1 10^3/uL (0.8-4.8); Lymphocytes % 26.7 %; Mean Corpuscular HGB Conc 33.9 g/dL (30-55); Mean Corpuscular Hemoglobin 30.2 pg (27-33); Mean Corpuscular Volume 89.3 fl (85-98); Mean Platelet Volume 9.3 fL (7.4-10.4); Monocytes # 0.5 10^3/uL (0.2-0.9); Monocytes % 6.3 %; Neutrophils # 5.01 10^3/uL (1.8-7.7); Neutrophils % 64.1 %; Nucleated Red Blood Cells % 0 %; Platelet Count 343 10^3/cmm (157-399); Red Cell Distribution Width 12.4 % (12.1-15.1); White Blood Count 7.82 10^3/uL (3.29-11.43)
[2023-10-21 09:24] LABS: Alanine Aminotransferase < 5 U/L (0-33); Alkaline Phosphatase 64 U/L (35-105); Anion Gap 8.3 (5-19); Aspartate Amino Transferase 8 U/L (0-32); Blood Urea Nitrogen 3 mg/dL (6-20); Carbon Dioxide 26 mmol/L (22-29); Chloride 109 mmol/L (98-107); Creatinine Clr Calc Pharmacy 149.2212; Globulin 2.6 g/dL (1.3-4.6); Glomerular Filtration Rate 151.6 mL/min (90-130); Glucose 115 mg/dL (65-115); Osmolality Calculated 287 mOsm/kg (285-295); Potassium 3.3 mmol/L (3.5-5.1); Sodium 140 mmol/L (136-145); Total Bilirubin 0.2 mg/dL (0.15-1.2); Total Protein 5.6 g/dL (6.6-8.7)
--- NOTE | 2023-10-21 10:28 | USR_ITS ---
PROCEDURE INFORMATION: Exam: US Nonobstetric Pelvis; Complete Exam date and time: 10/21/2023 3:57 PM Age: 23 years old Clinical indication: Condition or disease; Other: Infection; Prior surgery; Surgery date: <1 month; Surgery type: C section; Additional info: Endometritis, evaluate to be sure that no abscess present - S/P rltcs TECHNIQUE: Imaging protocol: Transabdominal pelvic nonobstetric ultrasound. Complete exam. Real time ultrasound with image documentation. COMPARISON: US OB limited [id number] 09/21/2023 2:12 PM FINDINGS: Uterus: Uterus measures 11.12 cm x 7.54 cm x 5.36 cm. Uterus is somewhat enlarged measuring 11 x 5.4 x 7.5 cm. Endometrium is thickened at 1.6 cm, perhaps related menstrual or status, please correlate clinically. surgical area in the anterior uterus with fluid in the region of the measuring up to 18 mm may be postsurgical in nature, please correlate for possible infection. Right ovary/adnexa: Ovary is normal. No mass. Normal blood flow. Left ovary/adnexa: Left ovary 11 mm cyst likely follicular in nature. Color blood flow seen in the ovary. Intraperitoneal space: Small amount of fluid in the pelvis. 2.6 cm complex fluid collection superior to the uterine fundus, potentially concerning for an abscess, correlation with CT abdomen and pelvis with intravenous enteric contrast advised. Urinary bladder: Normal. US/US pelv w/transvag [id number] IMPRESSION: 1. Uterus is somewhat enlarged measuring 11 x 5.4 x 7.5 cm. 2. Endometrium is thickened at 1.6 cm, perhaps related menstrual or status, please correlate clinically. 3. surgical area in the anterior uterus with fluid in the region of the measuring up to 18 mm may be postsurgical in nature, please correlate for possible infection. 4. Small amount of fluid in the pelvis, nonspecific. 5. 2.6 cm complex fluid collection superior to the uterine fundus, potentially concerning for an abscess, correlation with CT abdomen and pelvis with intravenous enteric contrast advised. 6. Left ovary 11 mm cyst likely follicular in nature.
--- NOTE | 2023-10-21 10:29 | P.PN_ITS ---
Subjective 2 Subjective: The patient feels that her pain is a little better than yesterday, however persistent. She has been having troubles with keeping fluids down. She has a poor appetite at this point and the more she eats, the more pain she has. Her bleeding is starting to decrease. Vitals/I&O/Wt Last Vital Signs Temp 98.1 F 10/21/23 07:39 Pulse 61 10/21/23 07:39 Resp 15 10/21/23 07:39 BP 121/77 10/21/23 07:39 Pulse Ox 95 10/21/23 07:39 O2 Del Method Room Air 10/21/23 07:39 10/20/23 10/21/23 10/21/23 22:59 06:59 14:59 Intake Total 1638.333 / 2755.708 1270 / 4025.708 792.917 / 792.917 Output Total 1800 / 1800 550 / 2350 650 / 650 Balance -161.667 / 955.708 720 / 1675.708 142.917 / 142.917 Weight last 48 hrs Weight 127 lb Weight 144 lb 14.4 oz Weight 127 lb Weight 127 lb Physical Exam 2 Narrative: General: Alert and oriented x 3. In no acute distress. Heart: Regular rate and rhythm. No murmurs. Lungs: Clear to auscultation bilaterally. No wheezes, crackles or ronchi. Abdomen: Soft, moderate tenderness in the lower abdomen with moderate to severe tenderness over the uterus. Rebound tenderness no longer present. No hepatosplenomegaly. Bowel sounds minimally present. Extremities: No pitting edema. Data 10/22/23 06:43 10/22/23 06:43 Micro: Microbiology 10/19/23 14:12 Urine Culture - Final Urine,Clean Catch Strep agalactiae - (group b) 10/19/23 14:10 Blood Culture - Preliminary Blood NEGATIVE TO DATE 10/19/23 14:10 Blood Culture - Preliminary Blood NEGATIVE TO DATE A&P Assessment and plan (1) Endometritis following delivery: The patient's endometritis seems to be showing signs of improvement in terms of the inflammatory markers. Her pain is slightly better. We will get an ultrasound to further evaluate and be sure that she is not having signs of a significant abscess or other complications. Continue with current antibiotics. (2) Hypokalemia: We will continue to replace potassium. (3) Ileus due to infection: The patient's bowel sounds are slightly improved compared to yesterday and she has been able to eat a little better than yesterday. I suspect that her ileus is starting to improve. Attestations 2 Medical Necessity Statement*: The patient continues to need inpatient care as we treat her endometritis. I am hopeful that she will improve sufficiently to go home over the next 1 to 2 days. Will follow-up on the ultrasound as above. At this point her care continues to need to cross 2 midnights. Coding Level of Care Code Acute Code for [facility] Diagnoses Endometritis following delivery O86.12 Hypokalemia E87.6 Ileus due to infection K56.7; B99.9
[2023-10-21] MEDS: potassium chloride ER 20 mEq Tablet 40 MEQ PO (10:39)
[2023-10-21] MEDS: SODIUM CHLORIDE 0.9% IV (13:20)
[2023-10-21] MEDS: GENTAMICIN IV (13:20)
[2023-10-21 13:51] VITALS: BP 159/71; PULSE 78; RESP 18; TEMP 36.6; O2SAT 99
[2023-10-21 15:22] VITALS: BP 126/94; PULSE 64; RESP 18; TEMP 36.7; O2SAT 97
[2023-10-21 19:13] VITALS: BP 135/89; PULSE 65; RESP 18; TEMP 37; O2SAT 99
[2023-10-22] VITALS: BP 118/74; PULSE 53; RESP 16; TEMP 37; O2SAT 96
[2023-10-22] MEDS: ampicillin 2,000 MG in sodium chloride 0.9% (plus) 50 ML 100 MG IV ×3 (03:36→15:25)
[2023-10-22 04:29] VITALS: BP 122/72; PULSE 58; RESP 18; TEMP 36.4; O2SAT 95
[2023-10-22] MEDS: clindamycin 900 MG/50 ML PREMIX 100 MG IV ×2 (05:42→14:45)
[2023-10-22 06:57] LABS: Basophils # 0.1 10^3/uL (0.0-0.1); Basophils % 0.8 %; Eosinophils # 0.2 10^3/uL (0.0-0.8); Eosinophils % 2.1 %; Hematocrit 42.5 % (36-47); Lymphocytes # 2.7 10^3/uL (0.8-4.8); Lymphocytes % 29.2 %; Mean Corpuscular HGB Conc 33.2 g/dL (30-55); Mean Corpuscular Hemoglobin 30.2 pg (27-33); Mean Platelet Volume 9.3 fL (7.4-10.4); Monocytes # 0.5 10^3/uL (0.2-0.9); Monocytes % 5.4 %; Neutrophils # 5.68 10^3/uL (1.8-7.7); Neutrophils % 62.2 %; Nucleated Red Blood Cells % 0 %; Platelet Count 379 10^3/cmm (157-399); Red Blood Count 4.67 10^6/uL (3.85-5.65); Red Cell Distribution Width 12.6 % (12.1-15.1); White Blood Count 9.12 10^3/uL (3.29-11.43)
[2023-10-22 07:19] LABS: Alanine Aminotransferase 7 U/L (0-33); Albumin Level 3.4 g/dL (3.5-5.2); Alkaline Phosphatase 69 U/L (35-105); Anion Gap 11.1 (5-19); Aspartate Amino Transferase 8 U/L (0-32); Blood Urea Nitrogen 4 mg/dL (6-20); Calcium 8.6 mg/dL (8.5-10.5); Carbon Dioxide 29 mmol/L (22-29); Chloride 105 mmol/L (98-107); Creatinine Clr Calc Pharmacy 186.5266; Glomerular Filtration Rate 196.1 mL/min (90-130); Glucose 78 mg/dL (65-115); Osmolality Calculated 288 mOsm/kg (285-295); Potassium 4.1 mmol/L (3.5-5.1); Sodium 141 mmol/L (136-145); Total Bilirubin 0.2 mg/dL (0.15-1.2); Total Protein 6.4 g/dL (6.6-8.7)
[2023-10-22 08:00] VITALS: BP 122/74; PULSE 59; RESP 20; TEMP 36.3; O2SAT 97
[2023-10-22] MEDS: sodium chloride 0.9% 1,000 ML 125 ML IV (08:05)
--- NOTE | 2023-10-22 11:22 | PC.CHAP ---
Pastoral Care Encounter/Spiritual Assessment Type of Contact [] Declined planning manager visit [] Patient/Family/Request visit [] Outpatient visit [] Follow-up visit [] Physician referral [] Code/Alert [x] Routine visit [] Staff referral [] Actively dying [] Patient sleeping [] Family support [] [] Out of room [] Palliative care [] [] Receiving care in room [] Pre-surgical visit [] Trauma [] Long length of stay [] ICU visit [] Other: Relational/Emotional Strength [] Patient feels connected with others/family/visitors/staff [] Distress [] Loneliness/isolation [] Abandonment Spirituality of Patient [x] Person of Nithya [] Attends Judaism of their Nithya [x] Believes in Prayer [] Reads Bible or Uatsdin materials [] There are Spiritual issues to be addressed [employer] Interventions [x] Prayer [x] Active listening [] Non-anxious presence [] Spiritual/emotional support [] Crisis/trauma care [] Spiritual counseling [] Bereavement support [] Provided bereavement packet [x] Provided Bible/devotional materials [] Provided toy/stuffed animal, coloring book to patient or family member [] Provided Communion [] Anointing/[place] [] Salvation [x] Completed spiritual assessment [] Other: Impact on Illness or Injury [] Angry [] Fearful [] Anxious [] Often cries [] Exhaustion [] Unable to work [] Unable to attend orthodoxy [] Unable to walk/stand [] Unable to read [] Unable to drive [] Unable to eat/drink [] Unable to sleep [] Unable to be with family [] Patient intubated [] Other: Summary 5 min Time spent with patient
[2023-10-22 11:55] VITALS: BP 128/61; PULSE 63; RESP 17; TEMP 36.6; O2SAT 97
[2023-10-22] MEDS: GENTAMICIN IV (12:48)
[2023-10-22] MEDS: SODIUM CHLORIDE 0.9% IV (12:48)
--- NOTE | 2023-10-22 15:55 | PM.OBGYCN ---
Providers/Reason for Consult Consulting Physican/Specialty*: Adal Rey MD, ob-clin application specialist Reason for Consult*: possible postoperative abscess Requesting Physcian: Jamal Reed MD Attending Physician: Jamal Reed MD Primary Care Provider: Jamal Reed MD [employer]ER Consult HPI History of Present Illness Sis Nair is a 23 year old female s/p repeat and bilateral tubal ligation October 01, 2023 was doing well until September when patient c/o lower abdominal pain patient was re-admitted on October 19, 2023 for abdominal pain and low-grade temperature She was placed on IV antibiotics Since admission, patient has been afebrile WBC has been normal CT scan of abdomen and pelvic October 18 and pelvic sono done October 20 showed possible 2.6 cm complex fluid collection superior to uterine fundus today, patient with c/o mild lower abdominal cramps eating, voiding well no vaginal bleeding or discharge no dysuria Present Details Date of Last Menstrual Period: 01/01/23 Medications/Allergies Home Medications Medication Instructions Recorded Confirmed Last Taken Type Electric Breast Pump #1 ea 08/23/23 10/20/23 Unknown Rx hydrocodone 5 mg-acetaminophen 325 1 - 2 tab PO Q4H PRN Moderate To 10/02/23 10/20/23 Unknown Rx mg tablet Severe Pain #20 tabs cefdinir 300 mg capsule 300 mg PO Q12H #20 caps 10/10/23 10/20/23 10/15/23 Rx stop taking 10/15/23 azithromycin 250 mg tablet See Rx Instructions PO .COMPLEX #6 10/11/23 10/20/23 10/15/23 Rx tabs stop taking 10/15/23 clindamycin HCl 300 mg capsule 300 mg PO TID #21 caps 10/18/23 10/20/23 10/19/23 Rx calcium carbonate 200 mg calcium 200 mg PO TID PRN Heartburn 10/20/23 10/20/23 Unknown History (500 mg) chewable tablet (Tums) ferrous sulfate 325 mg (65 mg 325 mg PO DAILY 10/20/23 10/20/23 Unknown History iron) tablet,delayed release ibuprofen 800 mg tablet 800 mg PO TID PRN Pain 10/20/23 10/20/23 Unknown History vit no.95-ferrous 1 tab PO DAILY 10/20/23 10/20/23 Unknown History fumarate 28 mg-folic acid 800 mcg tablet ( Multivitamins) Allergies Allergy/AdvReac Type Severity Reaction Status Date / Time doxycycline Allergy Mild rash Verified 10/20/23 09:10 ciprofloxacin [From Cipro] Allergy Unknown Rash, Verified 10/20/23 09:10 Itching trimethoprim [From Bactrim] Allergy Unknown Unknown Verified 10/20/23 09:10 sulfamethoxazole AdvReac Unknown rash and Verified 10/20/23 09:10 [From Bactrim] stomach pain Current Medications Generic Name Dose Route Start Last Admin Trade Name Silasq PRN Reason Stop Dose Admin Ampicillin Sodium 2,000 mg/ 50 mls @ 100 mls/hr 10/19/23 13:00 10/22/23 15:25 Sodium Chloride IV 100 mls/hr Q6H HEBER Administration Protocol Clindamycin HCl/Dextrose 900 mg in 50 mls @ 100 mls/hr 10/19/23 13:00 10/22/23 15:24 Cleocin IV Infused Q8H HEBER Infusion Protocol Gentamicin Sulfate 295 mg/ 107.375 mls @ 107.375 mls/hr 10/19/23 13:00 10/22/23 14:37 Sodium Chloride IV Infused Q24H HEBER Infusion Sodium Chloride 1,000 mls @ 125 mls/hr 10/20/23 10:30 10/22/23 12:48 Sodium Chloride 0.9% IV 125 mls/hr .Q8H HEBER Infusion PFSH [employer]ER PFSH: Medical History (Updated 10/19/23 @ 16:52 by Jamal Reed MD) UTI (urinary tract infection) Surgical History (Updated 10/22/23 @ 16:00 by Adal Rey MD) Status post section x 2 - Brianna History of bilateral tubal ligation 10/01/23 - Brianna Family History Grandfather Cancer Prostate Diabetes Grandmother Diabetes Social History Smoking and tobacco/nicotine status: former use of tobacco/nicotine Second hand smoke exposure: No Alcohol intake: never Substance/Drug Use: never Adopted: No Caregiver/support person: No Lives independently: Yes Household members: family Marital status: Single Highest education level completed: High School Graduate service: No Current occupational status: employed Pets and animals: Yes Do you think of yourself as: Straight/Heterosexual Current gender identity: Female Vitals/I&O/Wt Last Vital Signs Temp 98 F 10/22/23 11:55 Pulse 63 10/22/23 11:55 Resp 17 10/22/23 11:55 BP 128/61 10/22/23 11:55 Pulse Ox 97 10/22/23 11:55 O2 Del Method Room Air 10/22/23 08:00 10/22/23 10/22/23 10/22/23 06:59 14:59 22:59 Intake Total 1580 / 4520.292 675.292 / 675.292 50 / 725.292 Balance 1580 / 2070.292 675.292 / 675.292 50 / 725.292 Weight last 48 hrs Weight 127 lb Weight 127 lb Weight 144 lb 14.4 oz Physical Exam Narrative: afebrile comfortable, awake, alert Abd: soft, nondistended, nontender wound well-healed Ext: normal Data 10/22/23 06:43 10/22/23 06:43 A&P Assessment and plan (1) Status post section: s/p repeat and bilateral tubal ligation October 01, 2023 patient has been afebrile with normal clinical exam and normal WBC doubt intra-abdominal or pelvic abscess I would agree with discharging patient to home to be followed as outpatient clinically. Consult Attestations Medical Necessity Statement: patient admitted with [id number] abdominal pain and fever. Coding Level of Care Code Acute Code for Chg Fwd Diagnoses Status post section Z98.891 Time Spent (min) 30
[2023-10-22 16:00] VITALS: BP 117/74; PULSE 67; RESP 16; TEMP 36.7; O2SAT 96
--- NOTE | 2023-10-22 17:02 | PM.DCS ---
Discharge Providers Date of Admission: 10/19/23 09:43 Date of Discharge: October 22, 2023 Attending Provider at Admission: Jamal Reed MD Attending Provider at Discharge: Jamal Reed MD Primary Care Provider: Jamal Reed MD Diagnoses at Discharge Discharge Diagnosis (1) Endometritis following delivery: Status: Acute (2) Hypokalemia: Status: Acute (3) Ileus due to infection: Status: Acute Reason for Visit Reason for Visit: endometriosis Brief History: Sis Nair is a 23 year old female who delivered via repeat low-transverse section with bilateral tubal ligation on 10/01/2023. The patient had initially done well, however developed a fever on 10/06/2023. She had a cough and urinary symptoms and was seen by our nurse practitioner and started on cefdinir for suspicion of pneumonia as she had crackles in her lung bases. Her urine grew out GBS. I saw her the following day and added azithromycin for further coverage of pneumonia as she did have crackles and rhonchi in her lungs. The patient did not have significant abdominal pain at that time. Starting on 10/14/2023, the patient began to have abdominal pain. This pain began to gradually worsen and became moderately severe in nature. She presented to our nurse practitioner again on 10/18/2023 and I saw her in conjunction. The patient had findings concerning for an acute abdomen and was sent for a stat CT. The CT scan showed signs of endometritis without signs of acute appendicitis. The patient has been febrile as well. Her bleeding has been light. Because of the findings on CT in conjunction with her elevated CRP and fever despite previously being on antibiotics, it was felt best to admit her for IV antibiotic treatment. Hospital Course Hospital Course The patient was started on IV gentamicin, ampicillin and clindamycin for coverage of aerobic, anaerobic and GBS organisms. The patient initially had a significantly elevated CRP and this gradually declined throughout her hospital stay. The patient's abdominal pain was initially significant with rebound tenderness and by the time of discharge her pain had significantly improved. The patient also had an ileus and was having difficulty with holding down food and fluids initially. She was given IV fluids and her diet was advanced gradually. By the time of discharge, she was able to get back to a normal diet. She also no longer had significant abdominal pain with eating anymore. The patient's potassium levels were also low during hospitalization and these were replaced by mouth. The patient had an ultrasound done on 10/21/2023 that showed a complex lesion that was approximately 2 and half centimeters in diameter. This could have been an abscess versus a blood clot. Since her symptoms are improving clinically as are her labs and she is no longer febrile, it was felt that further investigation would not be needed at this point. Currently the patient's pain is significantly improving and her nausea and ability to take in food and liquids by mouth has improved as well. Will plan to follow-up with the patient over the next few days in clinic to be sure that she is continuing to do well. Will send her home with clindamycin for continued coverage of infection. If the patient's pain begins to worsen again or she becomes febrile, we may need to consider further investigation. At this point the patient is in agreement with discharge home. Physical Exam Narrative: General: Alert and oriented x 3. In no acute distress. Heart: Regular rate and rhythm. No murmurs. Lungs: Clear to auscultation bilaterally. No wheezes, crackles or ronchi. Abdomen: Soft, mild tenderness in the lower abdomen with mild to moderate tenderness over the uterus. Rebound tenderness no longer present. No hepatosplenomegaly. Bowel sounds now active. Extremities: No pitting edema. Discharge Data Studies Completed and Pending Completed Studies During Hospitalization Category Date Time Status US pelv w/transvag 02683/[id number] Routine Ultrasound 10/21/23 10:28 Completed Pending at discharge Category Date Time Status Blood Culture Stat Lab 10/19/23 14:10 Results Radiology Impressions Pelvic/Transvag US 10/21/23 10:28 IMPRESSION: 1. Uterus is somewhat enlarged measuring 11 x 5.4 x 7.5 cm. 2. Endometrium is thickened at 1.6 cm, perhaps related menstrual or status, please correlate clinically. 3. surgical area in the anterior uterus with fluid in the region of the measuring up to 18 mm may be postsurgical in nature, please correlate for possible infection. 4. Small amount of fluid in the pelvis, nonspecific. 5. 2.6 cm complex fluid collection superior to the uterine fundus, potentially concerning for an abscess, correlation with CT abdomen and pelvis with intravenous enteric contrast advised. 6. Left ovary 11 mm cyst likely follicular in nature. Laboratory Results WBC 9.12 10^3/uL (3.29-11.43) 10/22/23 06:43 RBC 4.67 10^6/uL (3.85-5.65) 10/22/23 06:43 Hgb 14.10 g/dL (11.27-16.99) 10/22/23 06:43 Hct 42.5 % (36-47) 10/22/23 06:43 MCV 91.0 fl (85-98) 10/22/23 06:43 MCH 30.2 pg (27-33) 10/22/23 06:43 MCHC 33.2 g/dL (30-55) 10/22/23 06:43 RDW 12.6 % (12.1-15.1) 10/22/23 06:43 Plt Count 379 10^3/cmm (157-399) 10/22/23 06:43 MPV 9.3 fL (7.4-10.4) 10/22/23 06:43 Neut % (Auto) 62.2 % 10/22/23 06:43 Lymph % (Auto) 29.2 % 10/22/23 06:43 [place] % (Auto) 5.4 % 10/22/23 06:43 Eos % (Auto) 2.1 % 10/22/23 06:43 Baso % (Auto) 0.8 % 10/22/23 06:43 Neut # (Auto) 5.68 10^3/uL (1.8-7.7) 10/22/23 06:43 Lymph # (Auto) 2.7 10^3/uL (0.8-4.8) 10/22/23 06:43 [place] # (Auto) 0.5 10^3/uL (0.2-0.9) 10/22/23 06:43 Eos # (Auto) 0.2 10^3/uL (0.0-0.8) 10/22/23 06:43 Baso # (Auto) 0.1 10^3/uL (0.0-0.1) 10/22/23 06:43 Nucleated RBC % (auto) 0 % 10/22/23 06:43 Nucleated RBCs # 0.0 /100WBC 10/22/23 06:43 Sodium 141 mmol/L (136-145) 10/22/23 06:43 Potassium 4.1 mmol/L (3.5-5.1) 10/22/23 06:43 Chloride 105 mmol/L (98-107) 10/22/23 06:43 Carbon Dioxide 29 mmol/L (22-29) 10/22/23 06:43 Anion Gap 11.1 (5-19) 10/22/23 06:43 BUN 4 mg/dL (6-20) L 10/22/23 06:43 Creatinine 0.4 mg/dL (0.5-0.9) L 10/22/23 06:43 GFR Calculation 196.1 mL/min (90-130) H 10/22/23 06:43 Glucose 78 mg/dL (65-115) 10/22/23 06:43 Calculated Osmolality 288 mOsm/kg (285-295) 10/22/23 06:43 Calcium 8.6 mg/dL (8.5-10.5) 10/22/23 06:43 Magnesium 1.8 mg/dL (1.7-2.3) 10/20/23 02:27 Total Bilirubin 0.2 mg/dL (0.15-1.2) 10/22/23 06:43 AST 8 U/L (0-32) 10/22/23 06:43 ALT 7 U/L (0-33) 10/22/23 06:43 Alkaline Phosphatase 69 U/L (35-105) 10/22/23 06:43 C-React Prot High Sens 0.890 mg/dL (0.0-0.3) H 10/22/23 06:43 Total Protein 6.4 g/dL (6.6-8.7) L 10/22/23 06:43 Albumin 3.4 g/dL (3.5-5.2) L 10/22/23 06:43 Globulin 3.0 g/dL (1.3-4.6) 10/22/23 06:43 Urine Color Yellow (Yellow) 10/19/23 14:12 Urine Appearance Clear (CLEAR) 10/19/23 14:12 Urine pH 6 (5-7) 10/19/23 14:12 Ur Specific [place] 1.010 (1.005-1.030) 10/19/23 14:12 Urine Protein Neg (Negative) 10/19/23 14:12 Urine Glucose (UA) Norm (Normal) 10/19/23 14:12 Urine Ketones 2+ (Negative) H 10/19/23 14:12 Urine Blood 3+ (Negative) H 10/19/23 14:12 Urine Nitrate Negative (Negative) 10/19/23 14:12 Urine Bilirubin Neg (Negative) 10/19/23 14:12 Urine Urobilinogen Norm mg/dL (Negative) 10/19/23 14:12 Ur Leukocyte Esterase Negative (Negative) 10/19/23 14:12 Urine RBC 10-15 /hpf (0-2) H 10/19/23 14:12 Urine WBC 5-10 /hpf (0-5) H 10/19/23 14:12 Ur Squamous Epith Cells 0-4 /hpf (0-5) H 10/19/23 14:12 Amorphous Sediment Not Reportable 10/19/23 14:12 Urine Bacteria Trace /hpf (NONE) 10/19/23 14:12 Vitals Last Vital Signs Temp 98.1 F 10/22/23 16:00 Pulse 67 10/22/23 16:00 Resp 16 10/22/23 16:00 BP 117/74 10/22/23 16:00 Pulse Ox 96 10/22/23 16:00 O2 Del Method Room Air 10/22/23 08:00 Discharge Plan Discharge Patient Disposition: Home Condition: Good Prescriptions: Continued clindamycin HCl 300 mg capsule 300 mg PO TID Qty: 21 0RF Rx Instructions: for 7 days (rx filled 10/18/23) Tums 200 mg calcium (500 mg) Tablet,Chewable 200 mg PO TID PRN (Reason: Heartburn) Multivitamins 28 mg iron- 800 mcg Tablet 1 tab PO DAILY ibuprofen 800 mg tablet 800 mg PO TID PRN (Reason: Pain) Discontinued azithromycin 250 mg tablet See Rx Instructions PO .COMPLEX Qty: 6 0RF Rx Instructions: For 250 mg dose pack: take 500 mg today (day 1), then 250 mg for 4 days (days 2-5) PO cefdinir 300 mg capsule 300 mg PO Q12H Qty: 20 0RF hydrocodone-acetaminophen 5-325 mg Tablet 1 - 2 tab PO Q4H PRN (Reason: Moderate To Severe Pain) Qty: 20 0RF ferrous sulfate 325 mg (65 mg iron) tablet,delayed release (DR/EC) 325 mg PO DAILY No Action (DME) Electric Breast Pump See Rx Instructions .Route .MEDSUPPLY Qty: 1 0RF Rx Instructions: As directed - To be used after delivery Discharge Orders: Discharge Order (Routine); Ordered 10/22/23 Ordered By: Jamal Reed Referrals: Jamal Reed MD [Primary Care Provider] - 1-3 days (Please follow up with Dr Reed this week. Call for an appt. We have notified your physician's clinic of the need for a follow-up appointment to be scheduled. If you have not heard from them within the next 2 business days, please call them directly. ) Discharge Diet: Advance as tolerated Discharge Activity: Increase activity as tolerated Patient Instructions: Endometritis (DC), Opioid Safety Discharge Attestations Time Spent in Discharge Care*: greater than 30 min Quality Metrics Clinical Quality Measures [ No reported AMI, CVA or VTE this stay] Coding Level of Care Code Acute Code for Chg Fwd Diagnoses Endometritis following delivery O86.12 Hypokalemia E87.6 Ileus due to infection K56.7; B99.9
[2023-10-22 17:19] VITALS: BP 117/74; PULSE 67; RESP 16; TEMP 36.7; O2SAT 96
== END 2023-10-22 17:20 | disposition home or self-care (01) | DRG 758 ==
PROVIDERS: Admitting Provider Family Medicine; PCP Family Medicine; Visit Provider Family Medicine
DX: N71.9 Inflammatory disease of uterus, unspecified (principal); K56.7 Ileus, unspecified; E87.6 Hypokalemia; R93.5 Abnormal findings on diagnostic imaging of other abdominal regions, including retroperitoneum
CPT/HCPCS: 36415; 76830; 76856; 80053; 81001; 83735; 85025; 86141; 87040; 87086; J0290; J1580; J3490; J7030

== ENCOUNTER → 2023-11-21 10:45 | Outpatient (BNVA) | payer BC, MEDICAID, SELFPAY | PROVIDERS: PCP Family Medicine; Visit Provider Clinical Nurse Specialist Adult Health | DX: N39.0 Urinary tract infection, site not specified (principal) | CPT/HCPCS: 81000; 87086 ==

== ENCOUNTER → 2024-01-23 11:26 | Outpatient (BNVA) | payer BC, MEDICAID, SELFPAY | PROVIDERS: PCP Family Medicine; Visit Provider Clinical Nurse Specialist Adult Health | DX: R10.9 Unspecified abdominal pain (principal); N30.00 Acute cystitis without hematuria | CPT/HCPCS: 81000; 87086 ==

== ENCOUNTER → 2024-06-17 13:46 | Outpatient (BNVA) | payer BC, MEDICAID, SELFPAY | PROVIDERS: PCP Family Medicine; Visit Provider Family Medicine | DX: Z01.419 Encounter for gynecological examination (general) (routine) without abnormal findings (principal) | CPT/HCPCS: 87624 ==

== ENCOUNTER → 2025-04-14 11:33 | Outpatient (BNVA) | payer BC, SELFPAY | PROVIDERS: PCP Family Medicine; Visit Provider Family Medicine | DX: Z51.81 Encounter for therapeutic drug level monitoring (principal); R00.2 Palpitations; R53.81 Other malaise; R53.83 Other fatigue | CPT/HCPCS: 80053; 83735; 84439; 84443; 85025; 87086 ==

== ENCOUNTER → 2025-05-05 10:39 | Outpatient (BNVA) | payer BC, OTHER, SELFPAY | PROVIDERS: PCP Family Medicine; Visit Provider Family Medicine | DX: Z00.00 Encounter for general adult medical examination without abnormal findings (principal); N92.1 Excessive and frequent menstruation with irregular cycle; R53.81 Other malaise; R53.83 Other fatigue | CPT/HCPCS: 82672; 82728; 83540; 83550; 84144; 84466 ==

== ENCOUNTER → 2025-06-08 16:13 | Outpatient (BNVA) | payer OTHER, BC, SELFPAY | PROVIDERS: PCP Family Medicine; Visit Provider Obstetrics & Gynecology | DX: N92.1 Excessive and frequent menstruation with irregular cycle (principal) | CPT/HCPCS: 84146 ==

== ENCOUNTER 2025-06-15 12:32 | Outpatient (CLI) | payer OTHER, BC, SELFPAY ==
--- NOTE | 2025-06-15 12:45 | US_ITS ---
WS: [id number] US pelv w/transvag [id number] HISTORY: R10.20 - Pelvic and perineal pain unspecified side COMPARISON: None available. Uterus: 10.7 cm x 6.2 cm x 5.1 cm. Uterus is slightly enlarged and normally anteverted. Uterus becomes slightly retroflexed during transvaginal imaging. No fibroid identified. Endometrium: 0.9 cm. Normal. Right ovary: 3.5 cm x 1.8 cm x 2.4 cm. Normal size and vascularity, no cystic or solid masses. Left ovary: 4.0 cm x 3.2 cm x 3.8 cm. There is a complex hemorrhagic cyst associated with the LEFT ovary. Cyst measures 3.0 x 2.7 x 3.0 cm. No free fluid in the cul-de-sac. US/US pelv w/transvag [id number] IMPRESSION: 1. Normal endometrium. 2. Hemorrhagic cyst LEFT ovary, 3.0 x 2.7 x 3.0 cm.
== END 2025-06-15 12:33 | disposition home or self-care (01) ==
LOC: RAD 12:33
PROVIDERS: PCP Family Medicine; Visit Provider Obstetrics & Gynecology
DX: R10.20 Pelvic and perineal pain unspecified side (principal)
CPT/HCPCS: 76830; 76856

== ENCOUNTER → 2025-07-14 10:51 | Outpatient (BNVA) | payer OTHER, BC, SELFPAY | PROVIDERS: PCP Family Medicine; Visit Provider Family Medicine | DX: R30.0 Dysuria (principal) | CPT/HCPCS: 87086 ==